=== PATIENT | female | born 1945 | race Caucasian/White ===

== ENCOUNTER 2017-01-13 21:31 | Inpatient (IN) ==
--- NOTE | 2017-01-13 21:50 | Emergency Department Note ---
IMahesh Kasabria, am scribing for, and in the presence of, Elida Ramey DO 21 :48. ITanvir Debra, DO, personally performed the services described in this documentation, ascribed by Farheen Aragon in my presence, and it is both accurate and complete . Arrival - Arrival Limitations: No Limitations Source: EMS Time Seen by Provider: 01/13/17 21:35 - History of Present Illness HPI Narrative: This is a 71 y/o white female presenting to the ED via EMS with c/o being unresponsive since 1400 today. Family found the pt this way tonight and called EMS. 2 Versed were given en route with no response. She is responsive to painful stimuli when dentures were removed. Consistency: constant Severity: moderate Allergies/Adverse Reactions: Allergies Allergy/AdvReac Type Severity Reaction Status Date / Time No Known Allergies Allergy Verified 09/25/16 23:35 Home Medications: Home Medications Medication Instructions Recorded Confirmed Type Baclofen 5 mg PO BID 03/19/15 10/12/16 History Escitalopram [Lexapro] 10 mg PO BEDTIME 03/19/15 10/12/16 History Pantoprazole Tab [Protonix Tab] 40 mg PO BID 03/19/15 10/12/16 History Potassium Chloride [K-Tab ER] 20 meq PO BID 01/13/16 10/12/16 History Promethazine HCl 25 mg PO Q6HR PRN 01/13/16 10/12/16 History traMADol TAB [Ultram] 50 - 100 mg PO Q6H PRN 01/13/16 10/12/16 History Acetaminophen Tab [Tylenol Tab] 650 mg PO Q6H PRN #0 tablet 07/14/16 10/12/16 Rx Hydrocortisone Tab [Cortef Tab] 20 mg PO BEDTIME #120 tablet 07/14/16 10/12/16 Rx Hydrocortisone Tab [Cortef Tab] 20 mg PO DAILY W/BREAKFAST tablet 07/14/1605/20 Rx Fludrocortisone [Florinef] 0.2 mg PO BID #60 tablet 09/08/16 10/12/16 Rx Ondansetron Tab [Zofran Tab] 4 mg PO Q6HR PRN 09/26/16 10/12/16 History Review of System - Review of System ROS unobtainable: due to mental status 12 point system: reviewed and no additional remarkable complaints except as stated - Review of System Constitutional: Absent: fever Gastrointestinal: Present: other (colostomy bag ). Absent: nausea, vomiting, diarrhea Skin: Absent: rash Neurological: Present: abnormal gait Allergic/Immunologic: Absent: facial swelling Exam Vital Signs: Vital Signs Temperature 97.4 F L 01/13/17 21:31 Pulse Rate 57 L 01/13/17 21:31 Respiratory Rate 14 01/13/17 21:31 Blood Pressure 84/49 01/13/17 21:31 O2 Sat by Pulse Oximetry 98 01/13/17 21:31 - General Exam limited due to: other (altered mental status ) General appearance: other (responsive to painfuls stimuli when dentures were removed ) - Head Head exam: Present: atraumatic, normocephalic, normal inspection - Eye Eye exam: Present: normal appearance, PERRL, EOMI - ENT ENT exam: Present: normal exam, normal oropharynx, mucous membranes moist, TM's normal bilaterally, normal external ear exam - Neck Neck exam: Present: normal inspection, full ROM, trachea midline. Absent: tenderness - Chest Chest inspection: Present: normal inspection, symmetric chest wall rise. Absent : tenderness - Respiratory Respiratory exam: Present: normal lung sounds bilaterally - Cardiovascular Cardiovascular exam: Present: regular rate, normal rhythm, normal heart sounds - Abdominal Exam Abdominal exam: Present: soft, normal bowel sounds, other (colostomy bag present ). Absent: distention, tenderness - Extremities Exam Extremities exam: Present: normal inspection, full ROM, normal capillary refill. Absent: tenderness, pedal edema, calf tenderness - Back Exam Back exam: Present: normal inspection, full ROM. Absent: tenderness - Neurological Exam Neurological exam: Present: alert, oriented X3, CN II-XII intact, normal gait, reflexes normal - Psychiatric Psychiatric exam: Present: normal affect, normal mood - Skin Skin exam: Present: warm, dry, intact, normal color. Absent: rash, diaphoresis Course Course Narrative: spoke with Dr Gutierrez who will admit patient Results - Labs CBC & BMP: 01/13/17 21:51 01/13/17 21:51 Lab Results: I have reviewed the patients labs - EKG EKG results: interpreted by DIVINA, WNL - Diagnostic Findings Procedure: Chest x-ray: image reviewed by me (no acute path), CT: report reviewed by me (neg) Disposition Clinical Impression: Addisonian crisis, Altered mental status Case discussed with: patient's family Disposition: Still a Patient Condition: Guarded Time of Disposition: 23:50
[2017-01-13] MEDS ORDERED: SODIUM CHLORIDE 0.9% 1,000 ML IV STA ×2 (21:59→23:05)
[2017-01-13 22:06] LABS: Basophils % 0.3 % (0.0-0.8); Eosinophils % 0.4 % (0.00-10.9); Hematocrit 31.3 VOL% (35.7-47.0); Hemoglobin 9.6 GM/DL (12.0-16.0); Immature Granulocytes % 5.6 %; Immature Granulocytes Absolute 0.38 #; Lymphocytes # 0.4 10*3/uL (1.4-4.0); Mean Corpuscular HGB Conc 30.7 GM/DL (32-36); Mean Corpuscular Hemoglobin 24 PG (27-34); Mean Corpuscular Volume 78.1 FL (87-102); Mean Platelet Volume 10.1 FL (9.6-12.0); Monocytes # 0.4 10*3/uL (0.11-0.8); Monocytes % 6.3 % (1.7-12.7); Neutrophils # 5.6 10*3/uL (1.4-7.4); Neutrophils % 81.4 % (38.7-73.9); Platelet Count 216 T/CUMM (130-400); Red Blood Count 4.01 MC/CUMM (3.8-5.5); Red Cell Distribution Width 16.2 % (9.3-17.3); White Blood Count 6.8 T/CUMM (4-12)
[2017-01-13 22:16] LABS: PT Patient Result 10.3 SECS
[2017-01-13 22:27] LABS: Alanine Aminotransferase 21 U/L (13-56); Albumin 2.5 G/DL (3.4-5.0); Alkaline Phosphatase 60 U/L (45-117); Aspartate Amino Transferase 22 U/L (0-37); Blood Urea Nitrogen 23 MG/DL (7-18); Calcium 8.2 MG/DL (8.5-10.1); Glucose 102 MG/DL (74-106); Osmolality,Calculated 284.3 MOS/KG (273-304); Potassium 4.1 MMOL/L (3.5-5.1); Sodium 141 MMOL/L (136-145); Total Protein 5.3 G/DL (6.4-8.3); Troponin I Only < 0.015 NG/ML (0.00-0.045)
[2017-01-13 22:50] LABS: Apearance,Urine Slightly Hazy (Clear); Bacteria,Urine Many /HPF (Few); Bilirubin,Urine Negative (Negative); Blood, Urine Negative (Negative); Glucose,Urine (UA) Negative (Negative); Ketones,Urine Negative (Negative); Mucus,Urine Occasional /LPF (Occasional); Nitrite,Urine Negative (Negative); Protein,Urine Negative; RBC,Urine 1 /HPF (0-4); Urine Color Yellow (Yellow); Urine Specific Gravity 1.009 (1.001-1.035); Urine Urobilinogen < 2.0 EU/DL (0.2-1.0); WBC,Urine 1 /HPF (0-6)
[2017-01-13] MEDS ORDERED: DOBUTamine 250 ML IV ONE (23:02)
[2017-01-13 23:04] LABS: Barbiturates Screen,Urine Negative (Negative); Benzodiazepines Screen,Urine Positive (Negative); Cannabinoid Screen,Urine Negative (Negative); Opiate Screen,Urine Positive (Negative); Phencyclidine Screen,Urine Negative (Negative)
[2017-01-13] MEDS ORDERED: NALOXONE 0.4 MG/ML VIAL IV STA ×2 (23:26→23:37)
[2017-01-13] MEDS ORDERED: NALOXONE 0.4 MG/ML VIAL ONE (23:29)
[2017-01-13] MEDS ORDERED: FLUMAZENIL 0.5 MG/5 ML VIAL IV ONE (23:32)
[2017-01-13] MEDS ORDERED: DEXAMETHASONE 4 MG/1 ML VIAL ONE (23:37)
[2017-01-13] MEDS ORDERED: FLUMAZENIL 1 MG/10 ML VIAL IV ONE (23:37)
[2017-01-13] MEDS ORDERED: DEXAMETHASONE 4 MG/1 ML VIAL IV STA (23:38)
[2017-01-13] MEDS: DOBUTamine 500 MG/250 ML PREMIX IV SCH (23:43)
[2017-01-13] MEDS ORDERED: ONDANSETRON 4 MG/2 ML VIAL IV PRN (23:50)
[2017-01-13] MEDS ORDERED: ACETAMINOPHEN 325 MG TABLET PO PRN (23:50)
[2017-01-14] MEDS: SODIUM CHLORIDE 0.9% 1,000 ML IV SCH ×3 (01:35→19:35)
[2017-01-14 01:36] LABS: Band Neutrophils 4 % (0-10); Lymphocytes 4 % (20-55); Metamyelocytes 1 %; Myelocytes 3 %; Segmented Neutrophils 84 % (50-85); Total Cells Counted 100
[2017-01-14 01:37] LABS: Anisocytosis 1+; Ovalocytes Few; Platelet Estimate Normal
--- NOTE | 2017-01-14 01:58 | Internal Med History&Physical ---
Assessment and Plan (1) Addisonian crisis Status: Acute Current Visit: Yes (2) Altered mental status Status: Acute Current Visit: Yes Qualifiers: Altered mental status type: somnolence Qualified Code(s): R40.0 - Somnolence (3) Anemia of chronic disease Status: Chronic Current Visit: Yes (4) Complication of Ileal conduit Status: Chronic Current Visit: Yes (5) Failure to thrive in adult Status: Chronic Current Visit: Yes (6) Hypotension Status: Chronic Current Visit: Yes Qualifiers: Hypotension type: orthostatic hypotension Qualified Code(s): I95.1 - Orthostatic hypotension (7) Personal history of colon cancer Status: Chronic Current Visit: No (8) Recurrent UTI Status: Chronic Current Visit: Yes History of Present Illness Chief complaint: unarousable at home History of present illness: Ms. Blake is a 71 year old female with history of [place] Disease with multiple recurrences, hypotension, stroke, [place], CHF with multiple recurrences of exacerbation, pneumonia with multiple recurrences, recurrent UTI, anemia with multiple blood transfusions, colorectal cancer with resection of colon and rectum, ileostomy, who presented to ER obtunded. Her reports that she has been arousable in the past, but not this time. He reports that ileostomy has been herniated as of October. Also, she has had recent UTI. Home Medications Medication Instructions Recorded Confirmed Type Baclofen 5 mg PO BID 03/19/15 10/12/16 History Escitalopram [Lexapro] 10 mg PO BEDTIME 03/19/15 10/12/16 History Pantoprazole Tab [Protonix Tab] 40 mg PO BID 03/19/15 10/12/16 History Potassium Chloride [K-Tab ER] 20 meq PO BID 01/13/16 10/12/16 History Promethazine HCl 25 mg PO Q6HR PRN 01/13/16 10/12/16 History traMADol TAB [Ultram] 50 - 100 mg PO Q6H PRN 01/13/16 10/12/16 History Acetaminophen Tab [Tylenol Tab] 650 mg PO Q6H PRN #0 tablet 07/14/16 10/12/16 Rx Hydrocortisone Tab [Cortef Tab] 20 mg PO BEDTIME #120 tablet 07/14/16 10/12/16 Rx Hydrocortisone Tab [Cortef Tab] 20 mg PO DAILY W/BREAKFAST tablet 07/14/1605/20 Rx Fludrocortisone [Florinef] 0.2 mg PO BID #60 tablet 09/08/16 10/12/16 Rx Ondansetron Tab [Zofran Tab] 4 mg PO Q6HR PRN 09/26/16 10/12/16 History Allergies Allergy/AdvReac Type Severity Reaction Status Date / Time No Known Allergies Allergy Verified 09/25/16 23:35 Medical,Surgical,& Family Hx - Medical History Cardio: History of: Cardiac Dysrhythmia, CHF, [place] Psychological: History of: Anxiety Disorders, Depression Neurology: History of: Cerebrovascular Accident (2016), Dementia HEENT: History of: Ear Problem (HARD OF HEARING), Dental Problems (DENTURES ( FULL) UPPER AND LOWER) No history of: Eye Problem Endocrine: History of: Adrenal Disease (adrenal insufficiency; addisons disease) , Endocrine Problems (DAVID'S DISEASE, ADRENAL INSUFFCIENCY) Respiratory: History of: Bronchitis, Intubation, Pulmonary Embolism, Pneumonia No history of: Obstructive Sleep Apnea, Pulmonary Hypertension, Lung Cancer, Respiratory Problems Renal: History of: Renal Failure, Renal Problems (renal Calculi) Genitourinary: History of: Bladder Problem, Kidney Stones, Recurring Urinary Tract Infections No history of: Genitourinary Cancer Gastrointestinal: History of: Diverticulitis/ Diverticulosis, GERD, Gastrointestinal Bleed, Liver Problems (SPOT ON LIVER ONCE), Polyps, Gastrointestinal Cancer (colorectal cancer), GI Problems (PATIENT DOESN'T HAVE COLON OR RECTUM) No history of: Bowel Obstruction, Esophageal Varices, Hemorrhoids, Hematochezia, Hepatitis, Pancreatitis, Ulcerative Colitis Musculoskeletal: History of: Back/Neck Problems, Osteoporosis No history of: Amputation Hematology: History of: Anemia, Blood Transfusion Reaction (STAPH INFECTION FROM BLOOD INFUSION) Reproductive: History of: Abnormal Pap Smear, Ovarian Cysts Other: History of: Cancer (colo-rectal) - Surgical History Cardiac Surgeries: Patient Denies: Femoral-Popliteal Bypass Graft, Cardiac Catheterization, Cardiac Surgery, Carotid Endarterectomy, Internal Defibrillator, Vascular Access Devices Thoracic Surgeries: Patient denies;: Kidney (Renal Surgery), Lithotripsy, Nephrectomy, Organ Transplant, Lobectomy Neurologic Surgeries: Patient denies: Neurologic Surgery HEENT Surgeries: Surgical HX of: Tonsilectomy & Adenoidectomy Patient denies: Carotid Endarterectomy, Eye Surgery, Thyroid Surgery Abdominal Surgeries: Surgical HX of: Abdominal Surgery, Appendectomy, Cholecystectomy, Colonoscopy, EGD, Hernia Repair Patient denies: Gastric Bypass Surgery, Splenectomy Reproductive Surgeries: Surgical HX of;: Gynecologic Surgery, Hysterectomy Patient denies;: Cystoscopy, Genitourinary Surgery Orthopedic Surgeries: Surgical HX of;: Orthopedic Surgery (BROKEN LEFT WRIST), Total Hip Replacement (RIGHT HIP) Patient denies;: Implanted Devices, Spinal Surgery, Total Knee Replacement - Family History Family History: Reports;: Family Cancer (Mother, Aunt), Family Diabetes ( Daughter, Grandmother), Family Heart Disease (Grandfather), Family Stroke ( Mother, Grandmother, Daughter) Denies;: Family Hypertension - Social History Smoking Status: Never smoker Type of Drug Use: None Marital Status: Lives With:: Spouse Functional capacity: independent ambulation ROS unobtainable: due to encephalopathy, other ( provided history; old charts) - Constitutional Constitutional: Present: daytime sleepiness, fatigue - Respiratory Respiratory: Present: dyspnea - Gastrointestinal Gastrointestinal: Present: nausea - Genitourinary Genitourinary: Present: dysuria (recent UTI) Exam - Constitutional Vitals: Period Temp Pulse Resp BP Sys/Funk Pulse Ox Last 24 Hr 85 16 95/50 100 General appearance: no acute distress (unarousable) - Head Head exam: Present: normocephalic - Respiratory Respiratory exam: Present: clear to auscultation bilaterally. Absent: rhonchi - Cardiovascular Cardiovascular exam: Present: regular rate and rhythm - GI/Abdominal GI/Abdominal exam: Present: normal bowel sounds, soft - Extremities Exam Extremities exam: Absent: edema - Neurological Exam Neurological exam: Present: other (unarousable) - Skin Skin exam: Present: warm, dry Results - Labs CBC & BMP: 01/13/17 21:51 01/13/17 21:51 - Diagnostic Findings Procedure: Chest x-ray: image reviewed by me
[2017-01-14] MEDS ORDERED: POTASSIUM CHLORIDE RIDER 20 MEQ in PREMIX 1 EACH IV PRN (02:02)
[2017-01-14 02:56] LABS: ABG Base Excess -6.7 MMOL/L (-2.5-2.5); ABG HCO3 18.9 MMOL/L (20-26); ABG Oxygen Saturation 97.3 % (95-100); ABG PCO2 35.4 MM HG (35-48); ABG PH 7.328 (7.35-7.45); ABG TCO2 17.1 MMOL/L (23-27); Allen Test Positive
[2017-01-14 04:59] LABS: Basophils % 0.1 % (0.0-0.8); Hematocrit 31.6 VOL% (35.7-47.0); Hemoglobin 9.4 GM/DL (12.0-16.0); Immature Granulocytes % 5.4 %; Immature Granulocytes Absolute 0.39 #; Lymphocytes # 0.2 10*3/uL (1.4-4.0); Lymphocytes % 2.6 % (21.3-54.2); Mean Corpuscular HGB Conc 29.7 GM/DL (32-36); Mean Corpuscular Hemoglobin 23 PG (27-34); Mean Corpuscular Volume 78.8 FL (87-102); Mean Platelet Volume 9.9 FL (9.6-12.0); Monocytes # 0.2 10*3/uL (0.11-0.8); Neutrophils # 6.4 10*3/uL (1.4-7.4); Neutrophils % 88.9 % (38.7-73.9); Platelet Count 197 T/CUMM (130-400); Red Blood Count 4.01 MC/CUMM (3.8-5.5); Red Cell Distribution Width 16.2 % (9.3-17.3); White Blood Count 7.2 T/CUMM (4-12)
[2017-01-14] MEDS: cefTRIAXone 1,000 MG in SODIUM CHLORIDE 0.9% 100 ML IV SCH (05:03)
[2017-01-14 05:16] LABS: Albumin 2.4 G/DL (3.4-5.0); Bilirubin,Total 0.4 MG/DL (0.2-1.0); Calcium 8.2 MG/DL (8.5-10.1); Magnesium 1.9 MG/DL (1.8-2.4); Potassium 3.9 MMOL/L (3.5-5.1); Total Protein 5.1 G/DL (6.4-8.3)
[2017-01-14 05:59] LABS: Apearance,Urine CLOUDY (Clear); Bacteria,Urine Occasional /HPF (Few); Bilirubin,Urine Negative (Negative); Blood, Urine Negative (Negative); Glucose,Urine (UA) Negative (Negative); Ketones,Urine 5 mg/dL (Negative); Mucus,Urine Occasional /LPF (Occasional); Nitrite,Urine Negative (Negative); Protein,Urine 30 MG/DL; RBC,Urine 7 /HPF (0-4); Squamous Epithelial Cell,Urine Occasional /HPF (0-10); Urine Color Yellow (Yellow); Urine Specific Gravity 1.014 (1.001-1.035); Urine Urobilinogen < 2.0 EU/DL (0.2-1.0); WBC,Urine 49 /HPF (0-6)
[2017-01-14] MEDS: POTASSIUM CHLORIDE RIDER 10 MEQ in PREMIX 1 EACH IV PRN ×2 (06:15→07:10)
[2017-01-14 07:41] LABS: Band Neutrophils 5 % (0-10); Hypochromasia Slight; Microcytosis 1+; Myelocytes 2 %; Platelet Estimate Adequate; Polychromasia Slight; Segmented Neutrophils 89 % (50-85); Total Cells Counted 100
--- NOTE | 2017-01-14 08:11 | EKG Report ---
Stationary ECG Study [facility] ER Test Date: 01/13/2017 9:38 PM Pat Name: ROBERT GALEANA Department: Room: 122 Gender: F Aquatics Coordinator: : 1945 Requested by: Elida Ramey Order Number: [id number] Reading MD: PRADIP SMITH Intervals [place] Rate: 60 P: 75 AR: 161 QRS: 85 QRSD: 86 T: 76 QT: 392 QTc: 393 Interpretive Statements SINUS RHYTHM Electronically Signed On 01-15-17 16:43:09 CDT by PRADIP SMITH [email or web address]
--- NOTE | 2017-01-14 08:19 | XRay Report ---
XR chest 1V portable Indication: Abnormal breath sounds Comparison: 13 October 2016 Findings: The heart and mediastinum are stable in size and configuration. Right subclavian Port-A-Cath is unchanged in position. The pulmonary vascularity is normal in caliber. Lung volumes are increased with prominent bronchial markings. Faint areas a right lower lung density are present. No other lung infiltrates, effusions, pneumothorax or other abnormality is demonstrated. Impression: Faint right lower lung densities, could indicate pneumonia. PROCEDURE INTERPRETED AT [facility] DEPARTMENT OF RADIOLOGY Final Report Signed by: Dr. Darrion Flores
--- NOTE | 2017-01-14 08:21 | CT Report ---
CT brain Indication: Altered mental status Comparison: 12 October 2016 Technique: Axial CT imaging of the brain is performed without contrast with 3 mm increments. Findings: No evidence of hemorrhage, mass mass effect midline shift or acute infarct seen. There is moderate diffuse cerebral atrophy. There are areas of decreased density seen within the white matter. Otherwise the brain parenchyma attenuation and differentiation appears within normal limits. The ventricles and cisterns are normal in caliber. No cranial or skull base abnormality is identified. Impression: No evidence of acute process or interval change. This CT exam was performed using one or more the following dose reduction techniques: Automated exposure control, adjustment of the MA and/or KV according to patient size, or use of iterative reconstruction technique. PROCEDURE INTERPRETED AT [facility] DEPARTMENT OF RADIOLOGY Final Report Signed by: Dr. Darrion Flores
[2017-01-14] MEDS: DOCUSATE SODIUM 100 MG CAPSULE PO SCH ×2 (09:22→21:32)
[2017-01-14] MEDS: PANTOPRAZOLE 40 MG TABLET PO SCH (09:22)
[2017-01-14] MEDS: DEXAMETHASONE 4 MG/1 ML VIAL IV SCH (12:44)
--- NOTE | 2017-01-14 15:01 | Internal Med Progress Note ---
Assessment and Plan (1) Altered mental status Status: Resolved Current Visit: Yes Qualifiers: Altered mental status type: somnolence Qualified Code(s): R40.0 - Somnolence (2) Anemia of chronic disease Status: Chronic Current Visit: Yes (3) Complication of Ileal conduit Status: Chronic Current Visit: Yes (4) Failure to thrive in adult Status: Chronic Current Visit: Yes (5) Hypotension Status: Chronic Current Visit: Yes Qualifiers: Hypotension type: orthostatic hypotension Qualified Code(s): I95.1 - Orthostatic hypotension (6) Personal history of colon cancer Status: Chronic Current Visit: No (7) Recurrent UTI Status: Chronic Current Visit: Yes (8) Addisons disease Status: Chronic Current Visit: Yes (9) History of pneumonia Status: Chronic Current Visit: Yes Internal Medicine - PN: Subj Interval history: Ms. Blake is a 71 year old female with history of [place] Disease with multiple recurrences, hypotension, stroke, [place], CHF with multiple recurrences of exacerbation, pneumonia with multiple recurrences, recurrent UTI, anemia with multiple blood transfusions, colorectal cancer with resection of colon and rectum, ileostomy, who presented to ER obtunded. Her reports that she has been arousable in the past, but not this time. He reports that ileostomy has been herniated as of October. Also, she has had recent UTI. She appears to be better today, Sunday, and is awake and alert. Suspicion for pneumonia is now low. Chest xray during the night, upon admission, was concerning for possible pneumonia. She has antibiotic coverage. She has ileostomy with issues. Dr. Terrell had seen her last hospitalizaton. Now , there is concern of technique and proper tubing for draining ileal pouch. The patient has had significant weight loss over last several months. Urine was positive for opiates and benzos. However, these meds are not on her med list. Asked Nurse to find out from her outpatient pharmacy. Exam (Progress Note) - Constitutional Vitals: Period Temp Pulse Resp BP Sys/Funk Pulse Ox Last 24 Hr 97.2 F 64-98 15-34 86-134/41-98 95-100 Exam: General appearance: no acute distress; alert - Respiratory Respiratory exam: Present: clear to auscultation bilaterally. - Cardiovascular Cardiovascular exam: Present: regular rate and rhythm - GI/Abdominal GI/Abdominal exam: Present: normal bowel sounds, soft - Extremities Exam Extremities exam: Absent: edema - Neurological Exam Neurological exam: Present: other - Skin Skin exam: Present: warm, dry Results - Labs CBC & BMP: 01/14/17 04:27 01/14/17 04:27
--- NOTE | 2017-01-14 16:28 | ECHO Report ---
Gina Blake Exam Date: 01/14/2017 08:12 Referring Physician: Technologist: Madeleine Alvarado Age: 71 Ht (in): 65 Wt (lb): 127 Gender: F Exam Location: [facility] Echo Indications: hypotension, dehydration, HX. heart disease, scarlet Disease, anemia, UTI, S/P ileal conduct BP: 98 / 48 HR: 78 Rhythm: Sinus Technical Quality: Fair IMPRESSIONS 1. Limited quality study visualization. 2. Left ventricle is normal size and systolic function with ejection fraction 55 6%. It worse mild concentric left ventricular hypertrophy with grade 1/mild diastolic dysfunction. 3. Other cardiac chambers are normal size. 4. There is no significant cardiac valve abnormality. 5. No evidence of elevated right-sided pressures. MEASUREMENTS (Male / Female) Normal Values 2D ECHO LV Diastolic Diameter PLAX 3.4 cm 4.2 - 5.9 / 3.9 - 5.3 cm LV Systolic Diameter PLAX 2.4 cm LV Fractional Shortening PLAX 27.4 % IVS Diastolic Thickness 1.2 cm 0.6 - 1.0 / 0.6 - 0.9 cm LVPW Diastolic Thickness 1.1 cm 0.6 - 1.0 / 0.6 - 0.9 cm RV Internal Dim ED PLAX 2.2 cm Aortic Root Diameter 2.5 cm LA Systolic Diameter LX 3.0 cm 3.0 - 4.0 / 2.7 - 3.8 cm DOPPLER TR Peak Velocity 219.0 cm/s TR Peak Gradient 19.2 mmHg FINDINGS Left Ventricle Left ventricle is normal size and systolic function with an ejection fraction of 55-60%. No segmental motion abnormalities. It worse and may be some mild left ventricular hypertrophy. Mild/grade 1 diastolic dysfunction. Right Ventricle Normal right ventricular size and systolic function. Right Atrium Normal right atrial size. Left Atrium Normal left atrial size. Mitral Valve Mitral valve appears to be grossly normal with good motion and delicate. Trace insufficiency. Aortic Valve Aortic valve is not well visualized but no visible gross abnormalities. No Doppler abnormalities. Tricuspid Valve Morphologically normal tricuspid valve. Trace to mild tricuspid valve regurgitation. Tricuspid regurgitation velocities suggest a PAP of 24- 29 mmHg. Pulmonic Valve Morphologically normal pulmonic valve. Pericardium No pericardial effusion. Aorta Normal size aortic root and proximal ascending aorta. Collin Rodriguez MD (Electronically Signed) Final Date: 14 Jan 2017 16:27
[2017-01-14] MEDS ORDERED: CYANOCOBALAMIN 1000 MCG/1 ML VIAL IM ONE (16:42)
--- NOTE | 2017-01-14 18:11 | Pulmonology Consult Note ---
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 Concerns include Concho's crisis, infection, and medication overdose among other possibilities. Evaluation thus far has shown a urine sample positive for benzos and opiates, which could be the source of her altered mental status. Additionally evaluation has shown a urinalysis concerning for a UTI. Chest x-ray performed today was interpreted as possibly concerning for a right lower lobe infiltrate. After review of the imaging, I do not feel this is likely to represent a pneumonia given her normal white count , absence of fever, lack of cough/sputum production noted by nursing and these increased lung markings were noted on prior chest x-ray. Given this, I do not feel a pneumonia is the source of this patient's altered mental status. Recommend continued evaluation per IM and consider antibiotic coverage while pursuing a source for altered mental status given her underlying Concho's disease. Current Visit: Yes Qualifiers: Altered mental status type: somnolence Qualified Code(s): R40.0 - Somnolence History of Present Illness Chief complaint: Altered mental status History of present illness: Ms. Blake is a 71 year old female who is reportedly brought into the emergency room for evaluation of altered mental status by her . was not available at the time of my interview and patient was unable to provide a reliable history. HPI is obtained by chart review. 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 Reportedly patient's found her minimally responsive at home and so brought her in to the emergency room. Pulmonary is consulted for concern of pneumonia on chest x-ray. Home Medications Medication Instructions Recorded Confirmed Type Baclofen 5 mg PO BID 03/19/15 10/12/16 History Escitalopram [Lexapro] 10 mg PO BEDTIME 03/19/15 10/12/16 History Pantoprazole Tab [Protonix Tab] 40 mg PO BID 03/19/15 10/12/16 History Potassium Chloride [K-Tab ER] 20 meq PO BID 01/13/16 10/12/16 History Promethazine HCl 25 mg PO Q6HR PRN 01/13/16 10/12/16 History traMADol TAB [Ultram] 100 mg PO Q6H PRN 01/13/16 10/12/16 History Acetaminophen Tab [Tylenol Tab] 650 mg PO Q6H PRN #0 tablet 07/14/16 10/12/16 Rx Hydrocortisone Tab [Cortef Tab] 20 mg PO BEDTIME #120 tablet 07/14/16 10/12/16 Rx Hydrocortisone Tab [Cortef Tab] 20 mg PO DAILY W/BREAKFAST tablet 07/14/1605/20 Rx Fludrocortisone [Florinef] 0.2 mg PO BID #60 tablet 09/08/16 10/12/16 Rx Ondansetron Tab [Zofran Tab] 4 mg PO Q6HR PRN 09/26/16 10/12/16 History Donepezil [Aricept] 5 mg PO BEDTIME 01/14/17 01/14/17 History prednisoLONE AC 1% OPH SUSP [Pred 1 drop RIGHT EYE QID 01/14/17 01/14/17 History Forte] Allergies Allergy/AdvReac Type Severity Reaction Status Date / Time No Known Allergies Allergy Verified 09/25/16 23:35 ROS unobtainable: due to mental status Exam (Pulmonay) H&P - Constitutional Vitals: Period Temp Pulse Resp BP Sys/Funk Pulse Ox Last 24 Hr 97.2 F 64-98 15-34 86-134/41-98 95-100 General appearance: under weight - Head Head exam: Present: normal inspection - Eye Eye exam: Present: EOMI Pupils: Present: CATY - Neck Neck exam: Present: normal inspection - Respiratory Respiratory exam: Present: clear to auscultation bilaterally. Absent: rales, rhonchi, wheezes - Cardiovascular Cardiovascular exam: Present: regular rate and rhythm - GI/Abdominal GI/Abdominal exam: Present: normal bowel sounds, soft. Absent: tenderness - Neurological Exam Neurological exam: Present: altered (Arouses easily but then quickly falls back asleep) - Skin Skin exam: Present: warm, dry Medical,Surgical,& Family Hx - Medical History Cardio: History of: Cardiac Dysrhythmia, CHF, [place] Psychological: History of: Anxiety Disorders, Depression Neurology: History of: Cerebrovascular Accident (2016), Dementia HEENT: History of: Ear Problem (HARD OF HEARING), Dental Problems (DENTURES ( FULL) UPPER AND LOWER) No history of: Eye Problem Endocrine: History of: Adrenal Disease (adrenal insufficiency; addisons disease) , Endocrine Problems (JEREMY'S DISEASE, ADRENAL INSUFFCIENCY) Respiratory: History of: Bronchitis, Intubation, Pulmonary Embolism, Pneumonia No history of: Obstructive Sleep Apnea, Pulmonary Hypertension, Lung Cancer, Respiratory Problems Renal: History of: Renal Failure, Renal Problems (renal Calculi) Genitourinary: History of: Bladder Problem, Kidney Stones, Recurring Urinary Tract Infections No history of: Genitourinary Cancer Gastrointestinal: History of: Diverticulitis/ Diverticulosis, GERD, Gastrointestinal Bleed, Liver Problems (SPOT ON LIVER ONCE), Polyps, Gastrointestinal Cancer (colorectal cancer), GI Problems (PATIENT DOESN'T HAVE COLON OR RECTUM) No history of: Bowel Obstruction, Esophageal Varices, Hemorrhoids, Hematochezia, Hepatitis, Pancreatitis, Ulcerative Colitis Musculoskeletal: History of: Back/Neck Problems, Osteoporosis No history of: Amputation Hematology: History of: Anemia, Blood Transfusion Reaction (STAPH INFECTION FROM BLOOD INFUSION) Reproductive: History of: Abnormal Pap Smear, Ovarian Cysts Other: History of: Cancer (colo-rectal) - Surgical History Cardiac Surgeries: Patient Denies: Femoral-Popliteal Bypass Graft, Cardiac Catheterization, Cardiac Surgery, Carotid Endarterectomy, Internal Defibrillator, Vascular Access Devices Thoracic Surgeries: Patient denies;: Kidney (Renal Surgery), Lithotripsy, Nephrectomy, Organ Transplant, Lobectomy Neurologic Surgeries: Patient denies: Neurologic Surgery HEENT Surgeries: Surgical HX of: Tonsilectomy & Adenoidectomy Patient denies: Carotid Endarterectomy, Eye Surgery, Thyroid Surgery Abdominal Surgeries: Surgical HX of: Abdominal Surgery, Appendectomy, Cholecystectomy, Colonoscopy, EGD, Hernia Repair Patient denies: Gastric Bypass Surgery, Splenectomy Reproductive Surgeries: Surgical HX of;: Gynecologic Surgery, Hysterectomy Patient denies;: Cystoscopy, Genitourinary Surgery Orthopedic Surgeries: Surgical HX of;: Orthopedic Surgery (BROKEN LEFT WRIST), Total Hip Replacement (RIGHT HIP) Patient denies;: Implanted Devices, Spinal Surgery, Total Knee Replacement - Family History Family History: Reports;: Family Cancer (Mother, Aunt), Family Diabetes ( Daughter, Grandmother), Family Heart Disease (Grandfather), Family Stroke ( Mother, Grandmother, Daughter) Denies;: Family Hypertension - Social History Smoking Status: Never smoker Frequency of Alcohol Use: Unknown Type of Drug Use: None Results - Labs CBC & BMP: 05/14/17 04:27 01/14/17 04:27 - Diagnostic Findings Procedure: Chest x-ray: image reviewed by me, report reviewed by me (No acute abnormalities. Faint right lower lobe increased lung markings)
[2017-01-15] MEDS: DEXAMETHASONE 4 MG/1 ML VIAL IV SCH (00:15)
[2017-01-15 02:44] LABS: ABG Base Excess -2.8 MMOL/L (-2.5-2.5); ABG HCO3 20.8 MMOL/L (20-26); ABG Oxygen Saturation 94.8 % (95-100); ABG PCO2 31.7 MM HG (35-48); ABG PH 7.435 (7.35-7.45); ABG PO2 83.5 MM HG (80-95); ABG TCO2 21.8 MMOL/L (23-27); Allen Test Positive; Pt O2 Delivery Device Room Air
[2017-01-15] MEDS: SODIUM CHLORIDE 0.9% 1,000 ML IV SCH ×4 (03:35→21:23)
[2017-01-15] MEDS: cefTRIAXone 1,000 MG in SODIUM CHLORIDE 0.9% 100 ML IV SCH (03:48)
[2017-01-15 05:24] LABS: Calcium 7.8 MG/DL (8.5-10.1); Magnesium 2.1 MG/DL (1.8-2.4); Osmolality,Calculated 283.1 MOS/KG (273-304); Potassium 3.7 MMOL/L (3.5-5.1)
--- NOTE | 2017-01-15 06:34 | EKG Report ---
Stationary ECG Study [facility] Test Date: 01/14/2017 7:51:50 PM Pat Name: ROBERT GALEANA Department: Room: 122 Gender: F [employer]: [place] : 1945 Requested by: Doug Butler Order Number: [id number] Reading MD: PRADIP SMITH Intervals Evans Rate: 102 P: 69 IA: 145 QRS: 85 QRSD: 78 T: 58 QT: 331 QTc: 390 Interpretive Statements SINUS TACHYCARDIA Electronically Signed On 01-15-17 16:52:55 CDT by PRADIP SMITH [email or web address]
[2017-01-15] MEDS ORDERED: PROMETHAZINE 25 MG TABLET PO PRN (08:04)
--- NOTE | 2017-01-15 08:10 | Family Practice Progress Note ---
Family Practice - PN: Subj Interval history: Patient is doing a bit better this morning was still quite confused. Patient still did have positive drug screen for benzos and opiates and she does not have prescription for these medications that I am aware of. She is off Dobutrex at present and her blood pressure is improved. I am going to restart her Florinef and switch her from Decadron to Solu-Cortef. Blood cultures are negative and her urine cultures negative at 24 hours. She is presently receiving IV Rocephin. If her vital signs remained stable she can come out of the unit later today. Exam (Progress Note) - Constitutional Vitals: Period Temp Pulse Resp BP Sys/Funk Pulse Ox Last 24 Hr 97.8 F-98.2 F 63-113 14-29 61-134/40-98 95-100 Exam: Objectively well-developed white female no acute distress. She is awake and alert and insistent on discharge. I told her that is not an option at present. She denies any pain or discomfort. Cardiovascular: Heart rates regular without murmurs or gallops. Respiratory: Lungs clear to auscultation bilaterally. Abdomen: Abdomen soft and nontender to palpation. Results - Labs CBC & BMP: 01/14/17 04:27 01/15/17 04:01 Lab Results: I have reviewed the past 24 hour labs Assessment and Plan (1) Addisons disease Status: Chronic Assessment and plan: 01/15/2017: Patient is clinically improved. Will restart Florinef And switched to Solu-Cortef. Current Visit: Yes (2) Dehydration Status: Resolved Assessment and plan: 01/15/2017: This has resolved. Current Visit: No
[2017-01-15] MEDS: DOCUSATE SODIUM 100 MG CAPSULE PO SCH ×2 (08:34→20:01)
[2017-01-15] MEDS: PANTOPRAZOLE 40 MG TABLET PO SCH (08:35)
[2017-01-15] MEDS: BACLOFEN 10 MG TABLET PO SCH ×2 (08:36→20:17)
[2017-01-15] MEDS: POTASSIUM CHLORIDE 20 MEQ TABLET PO SCH ×2 (08:36→20:16)
[2017-01-15] MEDS: FLUDROCORTISONE 0.1 MG TABLET PO SCH ×2 (08:36→20:18)
[2017-01-15] MEDS: HYDROCORTISONE 100 MG VIAL IV SCH ×2 (08:37→20:14)
--- NOTE | 2017-01-15 08:47 | Pulmonology Progress Note ---
Pulmonary - PN: Subj Interval history: The patient is a 71-year-old white lady that has a history of [place]'s disease and came in with hypotension and confusion. She did have a positive drug screen for opiates and benzodiazepines. She has been cultured and started on antibiotics. There was a question of pneumonia but her x-ray looked clear. She has had extensive abdominal surgery in the past. Now she is more alert and talking. She does get confused easily. She is not coughing or short of breath. She says she is hungry now. Overall she says she is feeling better. Exam (Progress Note) - Constitutional Vitals: Period Temp Pulse Resp BP Sys/Funk Pulse Ox Last 24 Hr 97.8 F-98.2 F 63-113 14-29 61-134/40-98 95-100 General appearance: no acute distress (She is awake and talking fairly clearly now.), under weight - Head Head exam: Present: normal inspection, normocephalic - Eye Eye exam: Present: EOMI. Absent: scleral icterus Pupils: Present: CATY - ENT ENT exam: Present: normal exam - Neck Neck exam: Present: normal inspection. Absent: lymphadenopathy, thyromegaly - Respiratory Respiratory exam: Present: clear to auscultation bilaterally. Absent: wheezes - Cardiovascular Cardiovascular exam: Present: regular rate and rhythm. Absent: gallop, systolic murmur - GI/Abdominal GI/Abdominal exam: Present: soft, other (She has had extensive abdominal surgery.). Absent: distended, tenderness - Extremities Exam Extremities exam: Absent: calf tenderness, edema - Neurological Exam Neurological exam: Present: alert, altered (She is still a little confused.) - Psychiatric Psychiatric exam: Present: anxious - Skin Skin exam: Present: warm, dry Results - Labs CBC & BMP: 01/14/17 04:27 01/15/17 04:01 - Diagnostic Findings Procedure: Chest x-ray: image reviewed by me, report reviewed by me (Her chest x -ray does not show anything definite.) Assessment and Plan (1) Dehydration Status: Resolved Assessment and plan: Patient came in hypotensive with a mildly elevated BUN and is getting some fluids. Current Visit: No (2) Addisons disease Status: Chronic Assessment and plan: The patient will continue her steroids and medications for Jeremy's. Current Visit: No (3) Altered mental status Status: Resolved Assessment and plan: Her altered mental status was likely related to medications. As she is better now. Current Visit: Yes Qualifiers: Altered mental status type: somnolence Qualified Code(s): R40.0 - Somnolence (4) S/P ileal conduit Status: Acute Assessment and plan: The patient has had previous extensive abdominal surgery. She has had her colon resected Current Visit: No (5) Personal history of colon cancer Status: Chronic Assessment and plan: Patient has a history of colon cancer and apparently is doing fairly well now. Current Visit: No
--- NOTE | 2017-01-15 11:12 | Urology Consultation ---
Assessment and Plan - Time spent with patient Time spent with patient: Greater than 30 minutes (1) Recurrent UTI Status: Chronic Assessment and plan: I discussed all the measures she should be doing. We will try Hip-David gram twice a day. A prescription was written. I will make her a follow-up appointment 6-8 weeks in the office. Current Visit: Yes History of Present Illness - Data of Consult Patient: new to practice Consult date: 01/15/17 Requesting Physician: Kevin Abernathy - Consult Narrative Reason for consult: Recurrent urinary tract infection History of present illness: Ms. Blake is a 71 year old female who I had seen one time in the past. I saw her in 2010 for so-called "hydronephrosis". We evaluated her and found her not to have hydronephrosis. I have not seen her since. She is now in the ICU with medical issues. 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 She has had a previous total colectomy and has a catheterizable GI pouch. She apparently has had recurrent urinary tract infections. I questioned the patient at length on how she urinates and what she does to try to prevent infections. She does wipe front to back. She says that she drinks plenty of fluids. She says she does not hold her urine for long periods of time. She take showers and not baths. She is not having bowel movements and I am a little surprised that she is having E. coli in her urine. The last culture I can find was E. coli. On exam she does have a parastomal hernia. But there are no abdominal masses. She has normal genitalia. Catheters in the meatus and this is normal. There is no pelvic masses. I discussed preventive measures at length with the patient and her . I will also recommend we place her on Hip-David. I am checking with the pharmacy to be sure that Hip-David is compatible with a GI pouch. She cannot take capsule and I understand this. This is a tablet. CC: Kevin Abernathy MD - Home Medications and Allergies Home Medications: Home Medications Medication Instructions Recorded Confirmed Type Baclofen 5 mg PO BID 03/19/15 01/14/17 History Escitalopram [Lexapro] 10 mg PO BEDTIME 03/19/15 01/14/17 History Pantoprazole Tab [Protonix Tab] 40 mg PO DAILY 03/19/15 01/14/17 History Potassium Chloride [K-Tab ER] 20 meq PO BID 01/13/16 01/14/17 History Promethazine HCl 25 mg PO Q6HR PRN 01/13/16 01/14/17 History traMADol TAB [Ultram] 100 mg PO Q6H PRN 01/13/16 01/14/17 History Acetaminophen Tab [Tylenol Tab] 650 mg PO Q6H PRN #0 tablet 07/14/16 01/14/17 Rx Hydrocortisone Tab [Cortef Tab] 20 mg PO BEDTIME #120 tablet 07/14/16 01/14/17 Rx Hydrocortisone Tab [Cortef Tab] 20 mg PO DAILY W/BREAKFAST tablet 07/14/16 Rx Fludrocortisone [Florinef] 0.2 mg PO BID #60 tablet 09/08/16 01/14/17 Rx Ondansetron Tab [Zofran Tab] 8 mg PO Q6HR PRN 09/26/16 01/14/17 History Donepezil [Aricept] 5 mg PO BEDTIME 01/14/17 01/14/17 History prednisoLONE AC 1% OPH SUSP [Pred 1 drop RIGHT EYE QID 01/14/17 01/14/17 History Forte] Allergies/Adverse Reactions: Allergies Allergy/AdvReac Type Severity Reaction Status Date / Time No Known Allergies Allergy Verified 09/25/16 23:35 12 point system: reviewed and no additional remarkable complaints except as stated - Genitourinary Genitourinary: Absent: difficulty urinating, dysuria, hematuria, other (No nocturia) Exam - Constitutional Vitals: Period Temp Pulse Resp BP Sys/Funk Pulse Ox Last 24 Hr 97.8 F-98.2 F 63-113 14-29 61-134/40-85 95-100 - GI/Abdominal GI/Abdominal exam: Present: hernia (Parastomal right lower quadrant), soft. Absent: ascites, distended, firm, guarding, mass, tenderness, rebound - Genitourinary Genitourinary: external genitalia normal, urethra without discharge (Melton catheter in place) Results - Labs CBC & BMP: 01/14/17 04:27 01/15/17 04:01 Lab Results: I have reviewed the past 24 hour labs
[2017-01-15] MEDS: prednisoLONE ACETATE 1% OPH SUSP 5 ML BOTTLE RIGHT EYE SCH ×4 (11:53→20:19)
--- NOTE | 2017-01-15 15:15 | General Surgery Consult Note ---
Assessment and Plan - Time spent with patient Time spent with patient: Less than 30 minutes (1) Parastomal hernia of ileal conduit Status: Acute Assessment and plan: Impression: 1. Parastomal hernia reducible at the ileostomy site. 2. History of colectomy with an ileal pouch present Plan: 1. At this point as long she is not having unusual trouble emptying her pouch do not see a real need to pursue any particular surgery on her at this time. 2. Because she is planning on going back to [place] where they created the pouch I think is best that we encourage her to go in that direction since is a complicated little pouch to deal with at times. Current Visit: No History of Present Illness Chief complaint: Patient with a parastomal hernia History of present illness: Ms. Blake is a 71 year old female white who mom well versed in. She is had an ileostomy with an ileal conduit created due to ulcerative colitis and a total colectomy. She has developed a parastomal hernia that the last time she was in several months ago created a little bit of a partial obstruction that was relieved with a catheter. She is in now because of some other issues and we were asked to see him for this parastomal hernia. Apparently since her discharge she has not had any unusual problems managing her ileostomy with with the pouch. At this point will just observe her because she needs to have this revised somewhat and since her surgeon is in [place]. The plan at her last admission was to go to [place] and have this repaired fixed we not quite sure what transpired once she did make that trip at this time. Will follow with you to deal with any unusual problems with this but the basic plan is for her to go to [place] for surgery. Home Medications Medication Instructions Recorded Confirmed Type Baclofen 5 mg PO BID 03/19/15 01/14/17 History Escitalopram [Lexapro] 10 mg PO BEDTIME 03/19/15 01/14/17 History Pantoprazole Tab [Protonix Tab] 40 mg PO DAILY 03/19/15 01/14/17 History Potassium Chloride [K-Tab ER] 20 meq PO BID 01/13/16 01/14/17 History Promethazine HCl 25 mg PO Q6HR PRN 01/13/16 01/14/17 History traMADol TAB [Ultram] 100 mg PO Q6H PRN 01/13/16 01/14/17 History Acetaminophen Tab [Tylenol Tab] 650 mg PO Q6H PRN #0 tablet 07/14/16 01/14/17 Rx Hydrocortisone Tab [Cortef Tab] 20 mg PO BEDTIME #120 tablet 07/14/16 01/14/17 Rx Hydrocortisone Tab [Cortef Tab] 20 mg PO DAILY W/BREAKFAST tablet 07/14/16 Rx Fludrocortisone [Florinef] 0.2 mg PO BID #60 tablet 09/08/16 01/14/17 Rx Ondansetron Tab [Zofran Tab] 8 mg PO Q6HR PRN 09/26/16 01/14/17 History Donepezil [Aricept] 5 mg PO BEDTIME 01/14/17 01/14/17 History prednisoLONE AC 1% OPH SUSP [Pred 1 drop RIGHT EYE QID 01/14/17 01/14/17 History Forte] Allergies Allergy/AdvReac Type Severity Reaction Status Date / Time No Known Allergies Allergy Verified 09/25/16 23:35 Medical,Surgical,& Family Hx - Medical History Cardio: History of: Cardiac Dysrhythmia, CHF, [place] Psychological: History of: Anxiety Disorders, Depression Neurology: History of: Cerebrovascular Accident (2016), Dementia HEENT: History of: Ear Problem (HARD OF HEARING), Dental Problems (DENTURES ( FULL) UPPER AND LOWER) No history of: Eye Problem Endocrine: History of: Adrenal Disease (adrenal insufficiency; addisons disease) , Endocrine Problems (DAVID'S DISEASE, ADRENAL INSUFFCIENCY) Respiratory: History of: Bronchitis, Intubation, Pulmonary Embolism, Pneumonia No history of: Obstructive Sleep Apnea, Pulmonary Hypertension, Lung Cancer, Respiratory Problems Renal: History of: Renal Failure, Renal Problems (renal Calculi) Genitourinary: History of: Bladder Problem, Kidney Stones, Recurring Urinary Tract Infections No history of: Genitourinary Cancer Gastrointestinal: History of: Diverticulitis/ Diverticulosis, GERD, Gastrointestinal Bleed, Liver Problems (SPOT ON LIVER ONCE), Polyps, Gastrointestinal Cancer (colorectal cancer), GI Problems (PATIENT DOESN'T HAVE COLON OR RECTUM) No history of: Bowel Obstruction, Esophageal Varices, Hemorrhoids, Hematochezia, Hepatitis, Pancreatitis, Ulcerative Colitis Musculoskeletal: History of: Back/Neck Problems, Osteoporosis No history of: Amputation Hematology: History of: Anemia, Blood Transfusion Reaction (STAPH INFECTION FROM BLOOD INFUSION) Reproductive: History of: Abnormal Pap Smear, Ovarian Cysts Other: History of: Cancer (colo-rectal) - Surgical History Cardiac Surgeries: Patient Denies: Femoral-Popliteal Bypass Graft, Cardiac Catheterization, Cardiac Surgery, Carotid Endarterectomy, Internal Defibrillator, Vascular Access Devices Thoracic Surgeries: Patient denies;: Kidney (Renal Surgery), Lithotripsy, Nephrectomy, Organ Transplant, Lobectomy Neurologic Surgeries: Patient denies: Neurologic Surgery HEENT Surgeries: Surgical HX of: Tonsilectomy & Adenoidectomy Patient denies: Carotid Endarterectomy, Eye Surgery, Thyroid Surgery Abdominal Surgeries: Surgical HX of: Abdominal Surgery, Appendectomy, Cholecystectomy, Colonoscopy, EGD, Hernia Repair Patient denies: Gastric Bypass Surgery, Splenectomy Reproductive Surgeries: Surgical HX of;: Gynecologic Surgery, Hysterectomy Patient denies;: Cystoscopy, Genitourinary Surgery Orthopedic Surgeries: Surgical HX of;: Orthopedic Surgery (BROKEN LEFT WRIST), Total Hip Replacement (RIGHT HIP) Patient denies;: Implanted Devices, Spinal Surgery, Total Knee Replacement - Family History Family History: Reports;: Family Cancer (Mother, Aunt), Family Diabetes ( Daughter, Grandmother), Family Heart Disease (Grandfather), Family Stroke ( Mother, Grandmother, Daughter) Denies;: Family Hypertension - Social History Smoking Status: Never smoker Frequency of Alcohol Use: Unknown Type of Drug Use: None 12 point system: reviewed and no additional remarkable complaints except as stated Exam - Constitutional Vitals: Period Temp Pulse Resp BP Sys/Funk Pulse Ox Last 24 Hr 97.6 F-98.2 F 63-113 13-29 61-130/40-85 95-100 General appearance: mild distress - Head Head exam: Present: normal inspection - ENT ENT exam: Present: normal exam - Neck Neck exam: Present: normal inspection - Respiratory Respiratory exam: Present: clear to auscultation bilaterally, rales - Cardiovascular Cardiovascular exam: Present: RRR - GI/Abdominal GI/Abdominal exam: Present: hypoactive bowel sounds, hernia (Parastomal hernia and around the ileostomy site right lower quadrant), soft. Absent: distended, tenderness - Extremities Exam Extremities exam: Present: normal inspection - Back Exam Back exam: Present: normal inspection - Neurological Exam Neurological exam: Present: alert, oriented X3, CN II-XII intact - Skin Skin exam: Present: normal color, warm, dry Results - Labs CBC & BMP: 01/14/17 04:27 01/15/17 04:01 Lab Results: I have reviewed the past 24 hour labs
[2017-01-15] MEDS: DOBUTamine 500 MG/250 ML PREMIX IV SCH (19:13)
[2017-01-15] MEDS ORDERED: DONEPEZIL 5 MG TABLET PO SCH (21:00)
[2017-01-15] MEDS ORDERED: ESCITALOPRAM 10 MG TABLET PO SCH (21:00)
[2017-01-16] MEDS: DOBUTamine 500 MG/250 ML PREMIX IV SCH (00:48)
[2017-01-16] MEDS: cefTRIAXone 1,000 MG in SODIUM CHLORIDE 0.9% 100 ML IV SCH (03:51)
[2017-01-16 04:11] LABS: ABG Base Excess 1.4 MMOL/L (-2.5-2.5); ABG HCO3 25.7 MMOL/L (20-26); ABG Oxygen Saturation 95.4 % (95-100); ABG PCO2 36.1 MM HG (35-48); ABG PH 7.452 (7.35-7.45); ABG PO2 80.3 MM HG (80-95); ABG TCO2 23.2 MMOL/L (23-27); Allen Test Positive; Pt O2 Delivery Device Room Air
--- NOTE | 2017-01-16 07:49 | Discharge Summary ---
Hospital Course - Hospital Course Hospital Course: Patient 69 white female with history of Jeremy's disease that was admitted with acute sensorium changes. There is found to have benzodiazepines and opiates on urine drug screen. Patient does not know how that happened. Patient was rehydrated and started on IV steroids and her blood pressure responded accordingly. Cultures were blood in her urine were obtained which were negative. Patient has history of a dinora stomal hernia and she plans to have this repaired by a surgeon in [place]. She provides no history of increased stooling, nausea or vomiting. Patient's back to her normal sensorium present. Patient be discharged home today. She was seen in consultation by Dr. Darryn Abernathy who recommended she start Hip-David. Diagnosis - Discharge Diagnosis (1) Addisons disease Status: Chronic (2) Dehydration Status: Resolved Discharge Plan - Discharge Data Disposition: Disch To Home/Self Care Condition at Discharge: Stable Discharge Diet: advance to your usual diet Activity: resume usual activities as tolerated Hygiene: no restrictions Weight Bearing at Discharge: full weight bearing Driving: no restrictions Contact your physician if you experience:: fever over 101 - Discharge Medications New Acetaminophen Tab [Tylenol Tab] 650 mg PO Q6H PRN #0 tablet PRN Reason: Fever > 100.4 Or Headache Methenamine Hippurate [Hiprex] 1 gm PO BID #60 tablet Continue Pantoprazole Tab [Protonix Tab] 40 mg PO DAILY Escitalopram [Lexapro] 10 mg PO BEDTIME Baclofen 5 mg PO BID traMADol TAB [Ultram] 100 mg PO Q6H PRN PRN Reason: Pain Promethazine HCl 25 mg PO Q6HR PRN PRN Reason: Nausea/Vomiting Potassium Chloride [K-Tab ER] 20 meq PO BID Acetaminophen Tab [Tylenol Tab] 650 mg PO Q6H PRN #0 tablet PRN Reason: Fever > 100.4 Or Headache Hydrocortisone Tab [Cortef Tab] 20 mg PO BEDTIME #120 tablet Hydrocortisone Tab [Cortef Tab] 20 mg PO DAILY W/BREAKFAST tablet Ondansetron Tab [Zofran Tab] 8 mg PO Q6HR PRN PRN Reason: Nausea prednisoLONE AC 1% OPH SUSP [Pred Forte] 1 drop RIGHT EYE QID Fludrocortisone [Florinef] 0.2 mg PO BID #60 tablet Donepezil [Aricept] 5 mg PO BEDTIME - Follow Up or Referral - Forms/Instructions Exam - Constitutional Vitals: Period Temp Pulse Resp BP Sys/Funk Pulse Ox Last 24 Hr 97.6 F-98.4 F 62-85 13-28 96-124/53-62 95-98 Exam: Objectively well-developed white female no acute distress. She is awake and alert back to her normal symptom sensorium. Cardiovascular: Heart rates regular without murmurs or gallops. Respiratory: Lungs clear to auscultation bilaterally. Abdomen: Abdomen soft and nontender to palpation. Discharge Results Procedures and tests throughout hospitalization: Pending Orders 01/13/17 05:58 Cortisol Free 24 Hr UR Stat 01/14/17 Urine Culture Routine 01/14/17 04:27 Blood Culture Routine Labs on day of discharge: Labs from last 24 hours 01/16/17 03:58 ABG pH 7.452 H ABG pCO2 36.1 ABG pO2 80.3 ABG HCO3 25.7 ABG Total CO2 23.2 ABG O2 Saturation 95.4 ABG Base Excess 1.4 FiO2 21.00 Preliminary micro results at discharge 01/14/17 Unknown Urine Culture - Preliminary Urine,Clean Catch No Growth at 24 hours. 01/14/17 04:27 Blood Culture - Preliminary Blood No growth at 1 day 01/14/17 04:27 Blood Culture - Preliminary Blood No growth at 1 day DS: Provider Date of admission: 01/13/17 23:50 Primary care physician: . No PCP Attending physician on admission: Kevin Abernathy MD Consults: 01/14/17 02:40 Consult to Physician [CONS] Routine Comment: questionable pneumonia; Jeremy's crisis Consulting Provider: Alex Gutierrez 01/14/17 02:45 Consult to Physician [CONS] Routine Comment: ileal stoma hernia Consulting Provider: Paul Terrell 01/14/17 03:10 Consult to Physician [CONS] Routine Comment: recurrent UTI Consulting Provider: Darryn Abernathy 01/14/17 03:13 Consult to Dietitian [CONS] Routine Reason for Dietitian: Diet Recommendations Consult Comment: protein requirements Discharging clinician: Kevin Abernathy MD Expected date of discharge: 01/16/17
[2017-01-16] MEDS: BACLOFEN 10 MG TABLET PO SCH (08:55)
[2017-01-16] MEDS: FLUDROCORTISONE 0.1 MG TABLET PO SCH (08:55)
[2017-01-16] MEDS: HYDROCORTISONE 100 MG VIAL IV SCH (08:56)
[2017-01-16] MEDS: PANTOPRAZOLE 40 MG TABLET PO SCH (08:56)
[2017-01-16] MEDS: POTASSIUM CHLORIDE 20 MEQ TABLET PO SCH (08:56)
[2017-01-16] MEDS: DOCUSATE SODIUM 100 MG CAPSULE PO SCH (08:56)
[2017-01-16] MEDS ORDERED: METHENAMINE HIPPURATE 1 GM TABLET PO SCH (09:00)
--- NOTE | 2017-01-16 09:09 | Pulmonology Progress Note ---
Pulmonary - PN: Subj Interval history: The patient is a 71-year-old white lady that has a history of Licking's disease and came in with hypotension and confusion. She did have a positive drug screen for opiates and benzodiazepines. She has been cultured and started on antibiotics. There was a question of pneumonia but her x-ray looked clear. She has had extensive abdominal surgery in the past. Now she is more alert and talking. She says she feels much better today and is eating well. She is not having any trouble with her breathing. Her mental status has improved nicely. She wants to go home today. Exam (Progress Note) - Constitutional Vitals: Period Temp Pulse Resp BP Sys/Funk Pulse Ox Last 24 Hr 97.6 F-98.4 F 62-85 13-24 96-124/53-58 95-98 Exam: General appearance: no acute distress (She is alert and talking and looks comfortable.) - Head Head exam: Present: normal inspection, normocephalic - Eye Eye exam: Present: EOMI. Absent: scleral icterus Pupils: Present: CATY - ENT ENT exam: Present: normal exam - Neck Neck exam: Present: normal inspection. Absent: lymphadenopathy, thyromegaly - Respiratory Respiratory exam: Present: clear to auscultation bilaterally. Her lungs sound clear now. Absent: wheezes - Cardiovascular Cardiovascular exam: Present: regular rate and rhythm. Absent: gallop, systolic murmur - GI/Abdominal GI/Abdominal exam: Present: soft, other (She has had extensive abdominal surgery.). Absent: distended, tenderness - Extremities Exam Extremities exam: Absent: calf tenderness, edema - Neurological Exam Neurological exam: Present: She looks more alert now is talking clearly. - Psychiatric Psychiatric exam: Present: She is calm today - Skin Skin exam: Present: warm, dry Results - Labs CBC & BMP: 01/14/17 04:27 01/15/17 04:01 Assessment and Plan (1) Addisons disease Status: Chronic Assessment and plan: The patient will continue her steroids and medications for Jeremy's. Her blood pressure has been reasonable. Current Visit: No (2) Altered mental status Status: Resolved Assessment and plan: Her altered mental status was likely related to medications. As she is better now. She looks like she is back to baseline. Current Visit: Yes Qualifiers: Altered mental status type: somnolence Qualified Code(s): R40.0 - Somnolence (3) S/P ileal conduit Status: Acute Assessment and plan: The patient has had previous extensive abdominal surgery. She has had her colon resected. Surgery has evaluated. Current Visit: No (4) Personal history of colon cancer Status: Chronic Assessment and plan: Patient has a history of colon cancer and apparently is doing fairly well now. Current Visit: No
[2017-01-16] MEDS: prednisoLONE ACETATE 1% OPH SUSP 5 ML BOTTLE RIGHT EYE SCH (10:34)
[2017-01-16 10:50] VITALS: BP 111/57
== END 2017-01-16 10:45 | disposition home or self-care (01) | DRG 918 ==
LOC: N.ED 21:31 → N.EDINP 23:50 → N.CC 01-14 01:26 → N.2E 01-15 21:06
PROVIDERS: ADMIT Family Medicine; ATTEND Family Medicine

== ENCOUNTER 2017-04-02 09:19 | Inpatient (IN) ==
[2017-04-02] MEDS ORDERED: SODIUM CHLORIDE 0.9% 500 ML IV STA (09:43)
--- NOTE | 2017-04-02 09:50 | Emergency Department Note ---
Arrival - Arrival Chief Complaint: Extremity Problem Stated Complaint: non traumatic hip pain ED Nursing Triage Note: PT C/O NONTRAUMATIC BILATERAL HIP PAIN. PT IS FOLLOWED BY DR PATTERSON FOR "BRITTLE BONES." NO OBVIOUS DEFORMITY NOTED. PT GIVEN MORPHINE 10MG IVP EN ROUTE BY EMS Mode of Arrival: Stretcher Limitations: No Limitations Source: Patient Time Seen by Provider: 04/02/17 09:42 - History of Present Illness HPI Narrative: This 71-year-old white female with chronic Stanley's disease for which she has received supplemental steroids for years presents with complaints of bilateral hip pain and inability to walk since Sunday 2 days ago. Up until that time she has been able to ambulate with her walker. She states she is having extremely severe pain in both hips. She denies any falls or injuries Sunday. She is followed both by Dr. Abernathy and Dr. Patterson with a history of multiple fractures throughout the pelvis and weightbearing area due to brittle bones from chronic steroids. Likewise, the relates significant complaints with high fevers during the weekend although she has no temperature at this time. She was flushed and had chills at times yesterday. She denies any cough, sinus complaints, headache, nausea, vomiting, but does complain of suprapubic tenderness. She is otherwise medically stable. Onset (ago): day(s) (Patient presents 2 days post onset of symptoms) Allergies/Adverse Reactions: Allergies Allergy/AdvReac Type Severity Reaction Status Date / Time No Known Allergies Allergy Verified 04/02/17 09:32 Home Medications: Home Medications Medication Instructions Recorded Confirmed Type Baclofen 10 mg PO BID PRN 03/19/15 03/21/17 History Pantoprazole Tab [Protonix Tab] 40 mg PO BID 03/19/15 03/21/17 History Potassium Chloride [K-Tab ER] 20 meq PO BID 01/13/16 03/21/17 History traMADol TAB [Ultram] 50 mg PO Q6H PRN 01/13/16 03/21/17 History Hydrocodone/Acetaminophen 0.5 - 1 each PO Q6H PRN 02/09/17 03/21/17 History [Hydrocodon-Acetaminoph 7.5-325] Calcium Carbonate/Vitamin D3 1 each PO DAILY 02/13/17 03/21/17 History [Calcium 600-Vit D3 400 Tablet] Fludrocortisone [Florinef] 0.2 mg PO BID 02/13/17 03/21/17 History Hydrocortisone [Hydrocortisone Tab] 20 mg PO BID 02/13/17 03/21/17 History Nitroglycerin Sl Tab [Nitrostat] 0.4 mg SL Q5M PRN 02/13/17 03/21/17 History Donepezil [Aricept] 5 mg PO BEDTIME 02/15/17 03/21/17 History Fluconazole Tab [Diflucan Tab] 150 mg PO DAILY 03/21/17 03/21/17 History Methenamine Hippurate [Hiprex] 1,000 gm PO BID 03/21/17 03/21/17 History Ondansetron HCl 8 mg PO BID PRN 03/21/17 03/21/17 History Sulfameth/Trimeth 800-160 Tab 1 tablet PO BID #14 tablet 03/21/17 Rx [Bactrim DS Tab] Review of System - Review of System 12 point system: reviewed and no additional remarkable complaints except as stated - Review of System Head/Ears/Nose/Throat: Present: see HPI Respiratory: Present: as per HPI Gastrointestinal: Present: as per HPI Genitourinary female: Present: as per HPI Musculoskeletal: Present: as per HPI Medical,Surgical,& Family Hx - Medical History Cardio: History of: Cardiac Dysrhythmia, CHF, MS Psychological: History of: Anxiety Disorders, Depression Neurology: History of: Cerebrovascular Accident (2016), Dementia No history of: Seizures HEENT: History of: Ear Problem (HARD OF HEARING), Dental Problems (DENTURES ( FULL) UPPER AND LOWER) No history of: Eye Problem Endocrine: History of: Adrenal Disease (adrenal insufficiency; addisons disease) , Endocrine Problems (DAVID'S DISEASE, ADRENAL INSUFFCIENCY) Respiratory: History of: Bronchitis, Intubation, Pulmonary Embolism, Pneumonia No history of: Obstructive Sleep Apnea, Pulmonary Hypertension, Lung Cancer, Respiratory Problems Renal: History of: Renal Failure, Renal Problems (renal Calculi) Genitourinary: History of: Bladder Problem, Kidney Stones, Recurring Urinary Tract Infections No history of: Genitourinary Cancer Gastrointestinal: History of: Diverticulitis/ Diverticulosis, GERD, Gastrointestinal Bleed, Liver Problems (SPOT ON LIVER ONCE), Polyps, Gastrointestinal Cancer (colorectal cancer 2004), GI Problems (PATIENT DOESN'T HAVE COLON OR RECTUM) No history of: Bowel Obstruction, Esophageal Varices, Hemorrhoids, Hematochezia, Hepatitis, Pancreatitis, Ulcerative Colitis Musculoskeletal: History of: Back/Neck Problems, Osteoporosis, Musculoskeletal Problems No history of: Amputation Hematology: History of: Anemia, Blood Transfusion Reaction (STAPH INFECTION FROM BLOOD INFUSION) Reproductive: History of: Abnormal Pap Smear, Ovarian Cysts Other: History of: Cancer (colo-rectal) No history of: Anesthesia Reactions - Surgical History Cardiac Surgeries: Patient Denies: Femoral-Popliteal Bypass Graft, Cardiac Catheterization, Cardiac Surgery, Carotid Endarterectomy, Internal Defibrillator, Vascular Access Devices Thoracic Surgeries: Patient denies;: Kidney (Renal Surgery), Lithotripsy, Nephrectomy, Organ Transplant, Lobectomy Neurologic Surgeries: Patient denies: Neurologic Surgery HEENT Surgeries: Surgical HX of: Eye Surgery (Cataract), Tonsilectomy & Adenoidectomy Patient denies: Carotid Endarterectomy, Thyroid Surgery Abdominal Surgeries: Surgical HX of: Abdominal Surgery, Appendectomy, Cholecystectomy, Colonoscopy, EGD, Hernia Repair Patient denies: Gastric Bypass Surgery, Splenectomy Reproductive Surgeries: Surgical HX of;: Gynecologic Surgery, Hysterectomy Patient denies;: Cystoscopy, Genitourinary Surgery Orthopedic Surgeries: Surgical HX of;: Orthopedic Surgery (BROKEN LEFT WRIST), Total Hip Replacement (RIGHT HIP, Left hip replacement x 2) Patient denies;: Implanted Devices, Spinal Surgery, Total Knee Replacement - Family History Family History: Reports;: Family Cancer (Mother, Aunt), Family Diabetes ( Daughter, Grandmother), Family Heart Disease (Grandfather), Family Stroke ( Mother, Grandmother, Daughter) Denies;: Family Anesthesia Reaction, Family Hypertension - Social History Smoking Status: Never smoker Frequency of Alcohol Use: None Type of Drug Use: None Exam Physical Examination: GENERAL: Fragile chronically ill-appearing white female in no acute distress. HEENT: Normocephalic. No trauma. Moist mucous membranes. EOMI. PERRLA. ENT NML NECK: Supple. No adenopathy. CARDIAC: Regular. No murmurs. Heart rate 98 CHEST: Clear to auscultation. No respiratory distress. O2 saturation 98%. Right chest wall MediPort ABDOMEN: Soft. Suprapubic tenderness with hypoactive bowel sounds. EXTREMITIES: No trauma. Severe pain with any attempts at range of motion of the hips as well as palpation of pelvis. No pedal edema. SKIN: No diaphoresis. No rash. NEURO: Alert. Oriented to person and place, time not so well. Motor, sensory, vibratory intact. No focal deficits. Vital Signs: Vital Signs Temperature 98.2 F 04/02/17 09:39 Pulse Rate 83 04/02/17 10:00 Respiratory Rate 18 04/02/17 10:00 Blood Pressure 102/52 04/02/17 10:00 O2 Sat by Pulse Oximetry 99 04/02/17 10:00 Course - Reevaluation(s) Reevaluation #1: Discussed with patient the need for hospitalization given her diffuse abnormalities - Consultations Consultation #1: Discussed with Dr. Abernathy who will admit for further evaluation and treatment. Results - Labs CBC & BMP: 04/02/17 10:10 04/02/17 10:10 Labs: I reviewed the lab results and noted the elevated white blood cell count, infected urine, and very low potassium. - Diagnostic Findings Procedure: Chest x-ray: image reviewed by me, report reviewed by me (No acute disease.), X-ray: image reviewed by me, report reviewed by me (Pelvis: Healing pelvic fractures with evidence of osteonecrosis of the right hip otherwise no new fractures.) Disposition Clinical Impression: Severe anemia, Hypokalemia, Cystitis, Healing pelvic fractures, Right hip osteonecrosis Case discussed with: patient, patient's family Disposition: Still a Patient Condition: Guarded Time of Disposition: 11:35
[2017-04-02 10:27] LABS: Basophils % 0.1 % (0.0-0.8); Eosinophils % 0.1 % (0.00-10.9); Hematocrit 19.5 VOL% (35.7-47.0); Immature Granulocytes % 2.5 %; Immature Granulocytes Absolute 0.33 #; Lymphocytes # 0.8 10*3/uL (1.4-4.0); Lymphocytes % 6.4 % (21.3-54.2); Mean Corpuscular HGB Conc 29.7 GM/DL (32-36); Mean Corpuscular Hemoglobin 22 PG (27-34); Mean Corpuscular Volume 75.3 FL (87-102); Mean Platelet Volume 10.1 FL (9.6-12.0); Monocytes % 7.9 % (1.7-12.7); Neutrophils # 10.9 10*3/uL (1.4-7.4); Platelet Count 238 T/CUMM (130-400); Red Blood Count 2.59 MC/CUMM (3.8-5.5); Red Cell Distribution Width 17.1 % (9.3-17.3); White Blood Count 13.1 T/CUMM (4-12)
[2017-04-02 10:33] LABS: Hemoglobin 5.8 GM/DL (12.0-16.0)
[2017-04-02 10:35] LABS: PT Patient Result 10.9 SECS
--- NOTE | 2017-04-02 10:38 | XRay Report ---
History: Fever Date: 04/02/2017 Study: Chest x-ray AP portable Comparison exam: January 17, 2017 The right subclavian Mediport-type catheter is stable in position. The cardiac silhouette is upper normal in size. There is no mediastinal mass. The pulmonary vasculature is not engorged. There is no pleural effusion. There is no acute infiltrate. There are some scattered emphysematous changes in the lungs. There is mild parenchymal and pleural scarring in either lung apex. There is no pleural effusion. Osseous structures are unchanged. Impression: No acute cardiopulmonary process compared to the previous study PROCEDURE INTERPRETED AT [facility] DEPARTMENT OF RADIOLOGY Final Report Signed by: Dr. Milagros Soriano
[2017-04-02 10:57] LABS: Apearance,Urine Slightly Hazy (Clear); Bacteria,Urine Many /HPF (Few); Bilirubin,Urine Negative (Negative); Blood, Urine Large mg/dL (Negative); Glucose,Urine (UA) Negative (Negative); Ketones,Urine Negative (Negative); Mucus,Urine Occasional /LPF (Occasional); Nitrite,Urine Positive (Negative); Protein,Urine 30 MG/DL; RBC,Urine 25 /HPF (0-4); Urine Color Yellow (Yellow); Urine Specific Gravity 1.011 (1.001-1.035); Urine Urobilinogen < 2.0 EU/DL (0.2-1.0); WBC,Urine 40 /HPF (0-6)
--- NOTE | 2017-04-02 11:02 | XRay Report ---
History: Pelvic pain Date: 04/02/2017 Study: Pelvis 3 views Comparison exam: February 09, 2017 pelvis x-ray There is a minimally displaced healing fracture of the left pubic bone which is thought to be subacute. There is relatively good alignment. There is some resorption about the vertical fracture plane with some potential early callus formation. There is also healing nondisplaced hairline fracture with sclerosis of the right pubic bone which was not present on the previous exam. There has been previous left hip replacement. The left hip prosthesis is well conjugated. There is some asymmetric sclerosis of the right femoral head as before. Underlying avascular necrosis of the right hip is suspected as before. There is osteopenia. Impression: Healing subacute fractures of either pubic bone which were not apparent on the comparison study. No acute hip fracture. Probable osteonecrosis right femoral head. Previous left hip replacement. Suspected osteopenia PROCEDURE INTERPRETED AT [facility] DEPARTMENT OF RADIOLOGY Final Report Signed by: Dr. Milagros Soriano
[2017-04-02] MEDS ORDERED: LEVOFLOXACIN INJ 750 MG in PREMIX 1 EACH IV STA (11:03)
[2017-04-02 11:07] LABS: Alanine Aminotransferase 17 U/L (13-56); Albumin 2.3 G/DL (3.4-5.0); Alkaline Phosphatase 125 U/L (45-117); Aspartate Amino Transferase 21 U/L (0-37); Bilirubin,Total < 0.39 MG/DL (0.2-1.0); Blood Urea Nitrogen 15 MG/DL (7-18); Calcium 7.9 MG/DL (8.5-10.1); Glucose 83 MG/DL (74-106); Potassium 2.9 MMOL/L (3.5-5.1); Sodium 136 MMOL/L (136-145); Total Protein 4.8 G/DL (6.4-8.3)
[2017-04-02] MEDS ORDERED: POTASSIUM BICARB EFFERVESCENT 25 MEQ TABLET PO ONE ×2 (11:31→17:00)
[2017-04-02] MEDS ORDERED: LEVOFLOXACIN IV ONE (11:32)
[2017-04-02] MEDS ORDERED: HYDROmorphone 2 MG/1 ML VIAL IV PRN (11:36)
[2017-04-02] MEDS ORDERED: POTASSIUM CHLORIDE 20 MEQ TABLET PO STA (11:36)
[2017-04-02] MEDS ORDERED: POTASSIUM CHLORIDE 20 MEQ TABLET PO ONE (12:40)
--- NOTE | 2017-04-02 13:03 | Family Practice History&Phys ---
Assessment and Plan (1) Osteonecrosis of right hip Status: Acute Assessment and plan: 04/02/2017: We will discuss patient with Dr. Wadsworth. Current Visit: Yes (2) Symptomatic anemia Status: Acute Assessment and plan: 04/02/2017: Transfusion will be begun. GI will be consulted. Current Visit: Yes (3) Addisons disease Status: Chronic Assessment and plan: 04/02/2017: Will add IV Solu-Cortef Current Visit: No (4) Altered mental status Status: Resolved Assessment and plan: 04/02/2017: Patient appears to have metabolic encephalopathy related to multiple factors. Current Visit: No Qualifiers: Altered mental status type: somnolence Qualified Code(s): R40.0 - Somnolence History of Present Illness Chief complaint: Hip pain and weakness History of present illness: Ms. Blake is a 71 year old female Patient is a 71-year-old white female presents emergency room complaining of bilateral hip pain which is severe and limits her activity. Patient states she is also been quite weak and having nausea, vomiting and dysuria. She had fever at home according to her but refused to come to the emergency room until today. Patient was found to be profoundly anemic and hypotensive on arrival to emergency room. She denied any history of GI bleeding but admits she did not check her stool when she changed her ileostomy bag. Patient's states she did not measure her temperature but she has been quite warm for the last several days. Patient denies any shortness of breath or chest pain. Home Medications Medication Instructions Recorded Confirmed Type Baclofen 10 mg PO BID PRN 03/19/15 04/02/17 History Pantoprazole Tab [Protonix Tab] 40 mg PO BID 03/19/15 04/02/17 History Potassium Chloride [K-Tab ER] 20 meq PO BID 01/13/16 04/02/17 History traMADol TAB [Ultram] 50 mg PO Q6H PRN 01/13/16 04/02/17 History Hydrocodone/Acetaminophen 1 each PO Q6H PRN 02/09/17 04/02/17 History [Hydrocodon-Acetaminoph 7.5-325] Calcium Carbonate/Vitamin D3 1 each PO DAILY 02/13/17 04/02/17 History [Calcium 600-Vit D3 400 Tablet] Fludrocortisone [Florinef] 0.2 mg PO BID 02/13/17 04/02/17 History Hydrocortisone [Hydrocortisone Tab] 10 mg PO BID 02/13/17 04/02/17 History Nitroglycerin Sl Tab [Nitrostat] 0.4 mg SL Q5M PRN 02/13/17 04/02/17 History Donepezil [Aricept] 5 mg PO BEDTIME 02/15/17 04/02/17 History Ondansetron HCl 8 mg PO BID PRN 03/21/17 04/02/17 History Allergies Allergy/AdvReac Type Severity Reaction Status Date / Time No Known Allergies Allergy Verified 04/02/17 09:32 - Constitutional Constitutional: Present: chills, fatigue, fever(s), weakness - EENT Eyes: Absent: blurry vision, loss of vision Ears: Absent: decreased hearing, ear pain Nose, mouth and throat: Absent: nasal congestion, sinus pressure, sore throat - Cardiovascular Cardiovascular: Absent: chest pain at rest, chest pain with activity, orthopnea , palpitations, PND - Respiratory Respiratory: Absent: cough, dyspnea - Gastrointestinal Gastrointestinal: Present: abdominal pain, nausea, vomiting. Absent: hematemesis, hematochezia - Genitourinary Genitourinary: Present: dysuria. Absent: flank pain, hematuria, urinary hesitancy, urinary incontinence - Musculoskeletal Musculoskeletal: Absent: arthralgias, back pain - Neurological Neurological: Absent: confusion, focal weakness, numbness, paresthesias - Psychiatric Psychiatric: Present: anxiety. Absent: confusion, depression - Endocrine Endocrine: Present: fatigue. Absent: polydipsia, polyphagia Medical,Surgical,& Family Hx - Medical History Cardio: History of: Cardiac Dysrhythmia, CHF, ID Psychological: History of: Anxiety Disorders, Depression Neurology: History of: Cerebrovascular Accident (2016), Dementia No history of: Seizures HEENT: History of: Ear Problem (HARD OF HEARING), Dental Problems (DENTURES ( FULL) UPPER AND LOWER) No history of: Eye Problem Endocrine: History of: Adrenal Disease (adrenal insufficiency; addisons disease) , Endocrine Problems (DAVID'S DISEASE, ADRENAL INSUFFCIENCY) Respiratory: History of: Bronchitis, Intubation, Pulmonary Embolism, Pneumonia No history of: Obstructive Sleep Apnea, Pulmonary Hypertension, Lung Cancer, Respiratory Problems Renal: History of: Renal Failure, Renal Problems (renal Calculi) Genitourinary: History of: Bladder Problem, Kidney Stones, Recurring Urinary Tract Infections No history of: Genitourinary Cancer Gastrointestinal: History of: Diverticulitis/ Diverticulosis, GERD, Gastrointestinal Bleed, Liver Problems (SPOT ON LIVER ONCE), Polyps, Gastrointestinal Cancer (colorectal cancer 2004), GI Problems (PATIENT DOESN'T HAVE COLON OR RECTUM) No history of: Bowel Obstruction, Esophageal Varices, Hemorrhoids, Hematochezia, Hepatitis, Pancreatitis, Ulcerative Colitis Musculoskeletal: History of: Back/Neck Problems, Osteoporosis, Musculoskeletal Problems No history of: Amputation Hematology: History of: Anemia, Blood Transfusion Reaction (STAPH INFECTION FROM BLOOD INFUSION) Reproductive: History of: Abnormal Pap Smear, Ovarian Cysts Other: History of: Cancer (colo-rectal) No history of: Anesthesia Reactions - Surgical History Cardiac Surgeries: Patient Denies: Femoral-Popliteal Bypass Graft, Cardiac Catheterization, Cardiac Surgery, Carotid Endarterectomy, Internal Defibrillator, Vascular Access Devices Thoracic Surgeries: Patient denies;: Kidney (Renal Surgery), Lithotripsy, Nephrectomy, Organ Transplant, Lobectomy Neurologic Surgeries: Patient denies: Neurologic Surgery HEENT Surgeries: Surgical HX of: Eye Surgery (Cataract), Tonsilectomy & Adenoidectomy Patient denies: Carotid Endarterectomy, Thyroid Surgery Abdominal Surgeries: Surgical HX of: Abdominal Surgery, Appendectomy, Cholecystectomy, Colonoscopy, EGD, Hernia Repair Patient denies: Gastric Bypass Surgery, Splenectomy Reproductive Surgeries: Surgical HX of;: Gynecologic Surgery, Hysterectomy Patient denies;: Cystoscopy, Genitourinary Surgery Orthopedic Surgeries: Surgical HX of;: Orthopedic Surgery (BROKEN LEFT WRIST), Total Hip Replacement (RIGHT HIP, Left hip replacement x 2) Patient denies;: Implanted Devices, Spinal Surgery, Total Knee Replacement - Family History Family History: Reports;: Family Cancer (Mother, Aunt), Family Diabetes ( Daughter, Grandmother), Family Heart Disease (Grandfather), Family Stroke ( Mother, Grandmother, Daughter) Denies;: Family Anesthesia Reaction, Family Hypertension - Social History Smoking Status: Never smoker Frequency of Alcohol Use: None Type of Drug Use: None Exam - Constitutional Vitals: Period Temp Pulse Resp BP Sys/Funk Pulse Ox Last 24 Hr 98.2 F-98.2 F 71-106 16-20 100-130/47-72 95-99 Exam: General: Objective patient is a well-developed white female who is pale but warm to the touch of her extremities. Patient is alert and able answer questions appropriately. She admits she should have come to the hospital sooner as she has been sick for several days now. HEENT: Pupils equal and reactive to light. Patent nares and airway, conjunctiva are pale Neck: No meningismus, adenopathy, thyromegaly. There are no auscultated carotid bruits. Cardiovascular: Regular rhythm. No murmurs or gallops Chest: Clear to auscultation without rales rhonchi wheezes. Abdomen: Soft nontender to palpation No masses, rebound, guarding or tenderness. Neuro: Cranial nerves intact and DTRs and strength symmetric in all extremities. Dermatologic: No evidence of abnormal lesions or masses. Musculoskeletal: Patient has pain with right hip rotation. Extremities: There is no calf swelling or tenderness., Patient has pallor to her palms. Results - Labs CBC & BMP: 04/02/17 10:10 04/02/17 10:10
[2017-04-02] MEDS ORDERED: NITROGLYCERIN SL 0.4 MG TABLET SL PRN (13:47)
[2017-04-02] MEDS ORDERED: SODIUM CHLORIDE 0.9% 250 ML IV PRN (13:47)
[2017-04-02] MEDS ORDERED: BACLOFEN 10 MG TABLET PO PRN (13:47)
[2017-04-02] MEDS: LEVOFLOXACIN INJ 750 MG in PREMIX 1 EACH IV SCH (14:16)
[2017-04-02 14:29] LABS: Hematocrit 18.9 VOL% (35.7-47.0)
--- NOTE | 2017-04-02 14:30 | Gastrointestinal Consult Note ---
Assessment and Plan (1) Anemia Status: Acute Assessment and plan: 04/02-Recent onset of weakness/fatigue with findings of HH 5/18 with vague reports of some blood in ileostomy (not a new finding). Hx of blood transfusions with total of 5u PRBC over the last year prior to this admission. Last known endoscopy in 2009 to remove irrigation tube from ostomy and EGD in 2010. To be transfused 2 units PRBC today. Further plan and addendum to follow by Dr Soriano. Current Visit: No History of Present Illness Chief complaint: Anemia History of present illness: Ms. Blake is a 71 year old female who was admitted to the hospital with onset of bilateral hip pain and weakness. Pt is a poor historian at this time and unable to provide specifics regarding her health history. Information is obtained from chart review with no family present during visit. Pt has a history of colon cancer and small bowel obstruction in 2006 with continent ileostomy, CHF, NC, dementia and Addisons disease. Pt was admitted to the hospital after patients spouse noted she had become weaker over the last several days and was more lethargic than usual. She also had some reported nausea and vomiting as well as subjective fever and chills. She was found on admission to be profoundly anemic as well as hypotensive. H&H on admission noted to be 5/18. Patient also found to have some leukocytosis with WBCs at 13, 000. UA is pending at this time. Patient states that she does not recall having any increased bleeding from her ostomy site however states that she does routinely have a small amount of bright red blood at times. She also complains of some GERD which seem to be worsened as of recently. Patient takes Protonix at home routinely for this. She denies any coffee-ground emesis or hematemesis with vomiting episodes. She denies any NSAID use. Patient states that she feels that she has had some recent weight loss due to decreased appetite. Looking back, her last admission in October patient is down approximately 7-8 pounds. Her last endoscopy was noted with a C scope in 2009) to remove irrigation catheter from ileostomy) and last EGD in 2010 (previous antrectomy, normal gastric polyps, history of Billroth I). Patient also has a history of peristomal hernia in which she was supposed to seek repair by her surgeon in [place] Home Medications Medication Instructions Recorded Confirmed Type Baclofen 10 mg PO BID PRN 03/19/15 04/02/17 History Pantoprazole Tab [Protonix Tab] 40 mg PO BID 03/19/15 04/02/17 History Potassium Chloride [K-Tab ER] 20 meq PO BID 01/13/16 04/02/17 History traMADol TAB [Ultram] 50 mg PO Q6H PRN 01/13/16 04/02/17 History Hydrocodone/Acetaminophen 1 each PO Q6H PRN 02/09/17 04/02/17 History [Hydrocodon-Acetaminoph 7.5-325] Calcium Carbonate/Vitamin D3 1 each PO DAILY 02/13/17 04/02/17 History [Calcium 600-Vit D3 400 Tablet] Fludrocortisone [Florinef] 0.2 mg PO BID 02/13/17 04/02/17 History Hydrocortisone [Hydrocortisone Tab] 10 mg PO BID 02/13/17 04/02/17 History Nitroglycerin Sl Tab [Nitrostat] 0.4 mg SL Q5M PRN 02/13/17 04/02/17 History Donepezil [Aricept] 5 mg PO BEDTIME 02/15/17 04/02/17 History Ondansetron HCl 8 mg PO BID PRN 03/21/17 04/02/17 History Allergies Allergy/AdvReac Type Severity Reaction Status Date / Time No Known Allergies Allergy Verified 04/02/17 09:32 Medical,Surgical,& Family Hx - Medical History Cardio: History of: Cardiac Dysrhythmia, CHF, NC Psychological: History of: Anxiety Disorders, Depression Neurology: History of: Cerebrovascular Accident (2016), Dementia No history of: Seizures HEENT: History of: Ear Problem (HARD OF HEARING), Dental Problems (DENTURES ( FULL) UPPER AND LOWER) No history of: Eye Problem Endocrine: History of: Adrenal Disease (adrenal insufficiency; addisons disease) , Endocrine Problems (DAVID'S DISEASE, ADRENAL INSUFFCIENCY) Respiratory: History of: Bronchitis, Intubation, Pulmonary Embolism, Pneumonia No history of: Obstructive Sleep Apnea, Pulmonary Hypertension, Lung Cancer, Respiratory Problems Renal: History of: Renal Failure, Renal Problems (renal Calculi) Genitourinary: History of: Bladder Problem, Kidney Stones, Recurring Urinary Tract Infections No history of: Genitourinary Cancer Gastrointestinal: History of: Diverticulitis/ Diverticulosis, GERD, Gastrointestinal Bleed, Liver Problems (SPOT ON LIVER ONCE), Polyps, Gastrointestinal Cancer (colorectal cancer 2004), GI Problems (PATIENT DOESN'T HAVE COLON OR RECTUM) No history of: Bowel Obstruction, Esophageal Varices, Hemorrhoids, Hematochezia, Hepatitis, Pancreatitis, Ulcerative Colitis Musculoskeletal: History of: Back/Neck Problems, Osteoporosis, Musculoskeletal Problems No history of: Amputation Hematology: History of: Anemia, Blood Transfusion Reaction (STAPH INFECTION FROM BLOOD INFUSION) Reproductive: History of: Abnormal Pap Smear, Ovarian Cysts Other: History of: Cancer (colo-rectal) No history of: Anesthesia Reactions - Surgical History Cardiac Surgeries: Patient Denies: Femoral-Popliteal Bypass Graft, Cardiac Catheterization, Cardiac Surgery, Carotid Endarterectomy, Internal Defibrillator, Vascular Access Devices Thoracic Surgeries: Patient denies;: Kidney (Renal Surgery), Lithotripsy, Nephrectomy, Organ Transplant, Lobectomy Neurologic Surgeries: Patient denies: Neurologic Surgery HEENT Surgeries: Surgical HX of: Eye Surgery (Cataract), Tonsilectomy & Adenoidectomy Patient denies: Carotid Endarterectomy, Thyroid Surgery Abdominal Surgeries: Surgical HX of: Abdominal Surgery, Appendectomy, Cholecystectomy, Colonoscopy, EGD, Hernia Repair Patient denies: Gastric Bypass Surgery, Splenectomy Reproductive Surgeries: Surgical HX of;: Gynecologic Surgery, Hysterectomy Patient denies;: Cystoscopy, Genitourinary Surgery Orthopedic Surgeries: Surgical HX of;: Orthopedic Surgery (BROKEN LEFT WRIST), Total Hip Replacement (RIGHT HIP, Left hip replacement x 2) Patient denies;: Implanted Devices, Spinal Surgery, Total Knee Replacement - Family History Family History: Reports;: Family Cancer (Mother, Aunt), Family Diabetes ( Daughter, Grandmother), Family Heart Disease (Grandfather), Family Stroke ( Mother, Grandmother, Daughter) Denies;: Family Anesthesia Reaction, Family Hypertension - Social History Smoking Status: Never smoker Frequency of Alcohol Use: None Type of Drug Use: None - Constitutional Constitutional: Present: as per HPI, fatigue, lethargy - EENT Eyes: Present: as per HPI Ears: Present: as per HPI Nose, mouth and throat: Present: as per HPI - Cardiovascular Cardiovascular: Present: as per HPI - Respiratory Respiratory: Present: as per HPI - Gastrointestinal Gastrointestinal: Present: as per HPI - Genitourinary Genitourinary: Present: as per HPI - Musculoskeletal Musculoskeletal: Present: as per HPI - Neurological Neurological: Present: as per HPI - Psychiatric Psychiatric: Present: as per HPI - Endocrine Endocrine: Present: as per HPI - Hematologic/Lymphatic Hematologic/Lymphatic: Present: as per HPI Exam - Constitutional Vitals: Period Temp Pulse Resp BP Sys/Funk Pulse Ox Last 24 Hr 98.2 F-98.2 F 71-108 16-20 99-130/47-72 95-100 General appearance: normal weight, no acute distress - Head Head exam: Present: normal inspection, normocephalic - Eye Eye exam: Present: other (lids and conjunctiva unremarkable). Absent: scleral icterus - ENT ENT exam: Present: normal exam, normal oropharynx - Neck Neck exam: Present: normal inspection - Respiratory Respiratory exam: Present: clear to auscultation bilaterally. Absent: rales, rhonchi, wheezes - Cardiovascular Cardiovascular exam: Present: regular rate and rhythm. Absent: diastolic murmur , JVD, systolic murmur - GI/Abdominal GI/Abdominal exam: Present: normal bowel sounds, soft. Absent: ascites, distended, mass, organomegaly, tenderness - Extremities Exam Extremities exam: Present: normal inspection, full ROM - Back Exam Back exam: Present: normal inspection - Neurological Exam Neurological exam: Present: alert, altered - Psychiatric Psychiatric exam: Present: normal affect, normal mood - Skin Skin exam: Present: warm, pallor Results - Labs CBC & BMP: 04/02/17 10:10 04/02/17 10:10 Lab Results: I have reviewed the past 24 hour labs
[2017-04-02 14:34] LABS: Hemoglobin 5.5 GM/DL (12.0-16.0)
[2017-04-02] MEDS: HYDROCORTISONE 100 MG VIAL IV SCH (14:35)
[2017-04-02 14:43] LABS: PT Patient Result 10.8 SECS; Partial Thromboplastin Time 22.6 SECS (0-40)
[2017-04-02] MEDS ORDERED: PANTOPRAZOLE 40 MG VIAL IV SCH (21:00)
[2017-04-02] MEDS: DONEPEZIL 5 MG TABLET PO SCH (21:39)
[2017-04-02] MEDS: FLUDROCORTISONE 0.1 MG TABLET PO SCH (21:39)
[2017-04-02] MEDS: POTASSIUM CHLORIDE 20 MEQ TABLET PO SCH (21:39)
[2017-04-02] MEDS: PANTOPRAZOLE 40 MG VIAL IV SCH (21:41)
[2017-04-02] MEDS: BACLOFEN 10 MG TABLET PO SCH (21:41)
[2017-04-02] MEDS: SODIUM CHLORIDE 0.9% 1,000 ML IV SCH ×2 (22:33→22:34)
[2017-04-02 23:34] LABS: Hematocrit 27.7 VOL% (35.7-47.0)
[2017-04-02 23:37] LABS: Hemoglobin 9.1 GM/DL (12.0-16.0)
[2017-04-03] MEDS: HYDROCORTISONE 100 MG VIAL IV SCH ×2 (01:33→11:48)
[2017-04-03 03:22] LABS: INR 1.1
[2017-04-03 03:23] LABS: Basophils % 0.1 % (0.0-0.8); Eosinophils % 0.1 % (0.00-10.9); Hemoglobin 9.4 GM/DL (12.0-16.0); Immature Granulocytes % 2.7 %; Immature Granulocytes Absolute 0.32 #; Lymphocytes # 0.5 10*3/uL (1.4-4.0); Lymphocytes % 4.4 % (21.3-54.2); Mean Corpuscular HGB Conc 32.4 GM/DL (32-36); Mean Corpuscular Hemoglobin 25 PG (27-34); Mean Corpuscular Volume 78.2 FL (87-102); Mean Platelet Volume 10.6 FL (9.6-12.0); Monocytes # 1.1 10*3/uL (0.11-0.8); Monocytes % 9.1 % (1.7-12.7); Neutrophils # 9.8 10*3/uL (1.4-7.4); Neutrophils % 83.6 % (38.7-73.9); Platelet Count 181 T/CUMM (130-400); Red Blood Count 3.71 MC/CUMM (3.8-5.5); Red Cell Distribution Width 16.2 % (9.3-17.3); White Blood Count 11.8 T/CUMM (4-12)
[2017-04-03 03:35] LABS: Bilirubin,Total 0.4 MG/DL (0.2-1.0); Calcium 7.8 MG/DL (8.5-10.1); Osmolality,Calculated 277.4 MOS/KG (273-304); Potassium 3.7 MMOL/L (3.5-5.1); Total Protein 4.3 G/DL (6.4-8.3)
[2017-04-03 06:22] LABS: Total Cells Counted 100
[2017-04-03 06:23] LABS: Band Neutrophils 3 % (0-10); Lymphocytes 7 % (20-55); Platelet Estimate Normal; Segmented Neutrophils 82 % (50-85)
[2017-04-03] MEDS: SODIUM CHLORIDE 0.9% 1,000 ML IV SCH ×2 (06:37→18:27)
--- NOTE | 2017-04-03 07:32 | Family Practice Progress Note ---
Family Practice - PN: Subj Interval history: Patient states she had a good night and feels much better. Her hematocrit is up to 29% this morning. She has not seen any blood in her stool but she does have heme positive stool. She denies any abdominal pain this morning. Her blood pressure is up in her urine output is adequate. Her renal function is stable and she has gained 1.4 kg since yesterday. I think she can move to the floor today Exam (Progress Note) - Constitutional Vitals: Period Temp Pulse Resp BP Sys/Funk Pulse Ox Last 24 Hr 97.0 F-100.1 F 63-134 11-32 77-156/25-72 28-100 Exam: Objective a pleasant white female no acute distress. Her sensorium is intact and she has no evidence of encephalopathy this morning. She states she is very perplexed in how she got sick so fast. Patient was seen with Dr. Soriano yesterday and he is considering EGD. Cardiovascular: Heart rates regular and there is no murmurs or gallops. Respiratory: Lungs clear to auscultation bilaterally. Abdomen: Abdomen soft and nontender to palpation this morning. Extremities: There is no calf swelling or tenderness. Results - Labs CBC & BMP: 04/03/17 02:42 04/03/17 02:42 Lab Results: I have reviewed the past 24 hour labs Assessment and Plan (1) Osteonecrosis of right hip Status: Acute Assessment and plan: 04/02/2017: We will discuss patient with Dr. Wadsworth. Current Visit: Yes (2) Symptomatic anemia Status: Acute Assessment and plan: 04/02/2017: Transfusion will be begun. GI will be consulted. 04/03/2017: Hematocrit is 29% this morning. Patient is feeling much better. Current Visit: Yes (3) Addisons disease Status: Chronic Assessment and plan: 04/02/2017: Will add IV Solu-Cortef 04/03/2017: Patient's blood pressure is improved with transfusion. Patient's electrolytes have normalized. Current Visit: No (4) Altered mental status Status: Resolved Assessment and plan: 04/02/2017: Patient appears to have metabolic encephalopathy related to multiple factors. 04/03/2017: This has resolved. Current Visit: No Qualifiers: Altered mental status type: somnolence Qualified Code(s): R40.0 - Somnolence
[2017-04-03] MEDS: CALCIUM (CARBONATE)/VITAMIN D 600 MG-400 UNIT TABLET PO SCH (08:47)
[2017-04-03] MEDS: BACLOFEN 10 MG TABLET PO SCH ×2 (08:47→20:50)
[2017-04-03] MEDS: POTASSIUM CHLORIDE 20 MEQ TABLET PO SCH ×2 (08:47→20:50)
[2017-04-03] MEDS: PANTOPRAZOLE 40 MG VIAL IV SCH ×2 (08:47→21:44)
[2017-04-03] MEDS: FLUDROCORTISONE 0.1 MG TABLET PO SCH ×2 (08:47→20:50)
[2017-04-03 08:58] LABS: Hematocrit 27.9 VOL% (35.7-47.0); Hemoglobin 9.1 GM/DL (12.0-16.0)
[2017-04-03] MEDS ORDERED: PANTOPRAZOLE 40 MG TABLET PO SCH (09:00)
[2017-04-03] MEDS: LEVOFLOXACIN INJ 750 MG in PREMIX 1 EACH IV SCH (11:48)
[2017-04-03] MEDS ORDERED: PROPOFOL 200 MG/20 ML VIAL IV ONE (13:08)
[2017-04-03] MEDS ORDERED: LIDOCAINE 1% 5 ML VIAL ONE (13:08)
--- NOTE | 2017-04-03 13:17 | History and Physical Update ---
History and Physical Update - History and Physical H&P was reviewed, the patient examined and there: are no changes in the patients condition since last H&P was completed. - Physical Exam Mental Status: alert and oriented Heart: regular rate and rhythm Lung: clear to auscultation Abdomen: within normal limits Vitals: within normal limits
--- NOTE | 2017-04-03 13:21 | Anesthesia Post-Op ---
Anesthesia Post OP - Post Ansesthetic Evaluation Patient seen in post op: Yes Resp: within normal limits CV: within normal limits Mental: within normal limits Temp: within normal limits [id number]: within normal limits Nausea and Vomiting: within normal limits Pain: within normal limits
--- NOTE | 2017-04-03 13:22 | Operative Note ---
Date of procedure: 04/03/17 Pre-op diagnosis: GI bleed, symptomatic anemia Procedure: Procedure: Esophagogastroduodenoscopy Brief clinical abstract: 71-year-old female was admitted with symptomatic weakness and found to be anemic with hemoglobin 5.8. She has been transfused. She has noted no gross GI bleeding but had documented occult blood in her stool. Indication for procedure: Occult GI bleeding, symptomatic anemia Endoscopic findings:[After informed consent was obtained, the patient was placed in the left lateral decubitus position. The gastroscope was inserted in the upper esophagus under direct vision with no resistance encountered. Esophageal mucosa appeared normal down to the distal esophagus. There were 3 longitudinal erosions around 1 cm in length extending to the squamocolumnar junction. These occupied less than 10% of the luminal circumference. Just distal to this was a small hiatal hernia. The endoscope was advanced in the stomach which was carefully examined including retroflexed view of the cardia and fundus. No blood was noted in the stomach. There was a fairly large amount of retained food material in the stomach which limited visibility. Patient has had partial gastrectomy with probable antrectomy with Billroth I anatomy. There was a small approximately 8 mm ulcer in the gastric outlet with no visible vessel. A photo was taken of this. No other lesions were seen in the stomach but again retained food limited our exam. The duodenal bulb, second and third portion of the duodenum appeared normal. The endoscope was withdrawn and patient appeared to tolerate the procedure well. 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 #2 LA classification grade B erosive esophagitis secondary to GERD #3 small hiatal hernia #4 retained food material in stomach-suggests possible gastroparesis/gastric motility disorder #5 previous partial gastrectomy with Billroth I anatomy Recommendations: Continue PPI therapy twice daily for now and follow hemoglobin. I will want to try to find her old operative reports regarding her previous colon resections. She has had previous rectosigmoid colon cancer resected and also another colon resection by history but I am not sure how much residual colon is remaining after this. Anesthesia: MAC Surgeon / Physician: James Soriano Estimated blood loss: none Specimens: none sent Condition: stable Disposition: post procedure unit Results - Labs CBC & BMP: 04/03/17 08:41 04/03/17 02:42 Discharge Plan - Discharge Medications No Action Pantoprazole Tab [Protonix Tab] 40 mg PO BID Baclofen 10 mg PO BID PRN PRN Reason: Pain traMADol TAB [Ultram] 50 mg PO Q6H PRN PRN Reason: Pain Potassium Chloride [K-Tab ER] 20 meq PO BID Nitroglycerin Sl Tab [Nitrostat] 0.4 mg SL Q5M PRN PRN Reason: Chest Pain Hydrocortisone [Hydrocortisone Tab] 10 mg PO BID Calcium Carbonate/Vitamin D3 [Calcium 600-Vit D3 400 Tablet] 1 each PO DAILY Donepezil [Aricept] 5 mg PO BEDTIME Ondansetron HCl 8 mg PO BID PRN PRN Reason: Nausea Hydrocodone/Acetaminophen [Hydrocodon-Acetaminoph 7.5-325] 1 each PO Q6H PRN PRN Reason: Pain Fludrocortisone [Florinef] 0.2 mg PO BID - Follow Up or Referral - Forms/Instructions
[2017-04-03] MEDS: DONEPEZIL 5 MG TABLET PO SCH (20:50)
[2017-04-04] MEDS: HYDROCORTISONE 100 MG VIAL IV SCH ×3 (00:11→20:54)
[2017-04-04] MEDS: SODIUM CHLORIDE 0.9% 1,000 ML IV SCH ×3 (02:30→20:10)
--- NOTE | 2017-04-04 07:41 | Family Practice Progress Note ---
Family Practice - PN: Subj Interval history: Patient states she had a good night and is feeling much better. She tolerated her supper last night. She had a pyloric channel ulcer and esophagitis on her EGD. Her hematocrit this morning is 27%. She is not seeing any blood in her stool. She has blood cultures that were positive for gram-negative rods and gram-positive cocci. ID and sensitivity is yet pending. She certainly does not appear to be septic at this time. She still having some right hip pain. Exam (Progress Note) - Constitutional Vitals: Period Temp Pulse Resp BP Sys/Funk Pulse Ox Last 24 Hr 97.0 F-98.2 F 57-76 10-22 96-142/51-78 95-100 Exam: Objective a pleasant white female no acute distress. Patient's able to give good history and her sensorium is intact. Cardiovascular: Heart rates regular and there is no murmurs or gallops. Respiratory: Lungs clear to auscultation bilaterally. Abdomen: Abdomen soft and nontender to palpation this morning. Extremities: There is no calf swelling or tenderness. Results - Labs CBC & BMP: 04/03/17 08:41 04/03/17 02:42 Lab Results: I have reviewed the past 24 hour labs Assessment and Plan (1) Osteonecrosis of right hip Status: Acute Assessment and plan: 04/02/2017: We will discuss patient with Dr. Wadsworth. 04/04/2017: Dr. Wadsworth's been consulted Current Visit: Yes (2) Symptomatic anemia Status: Acute Assessment and plan: 04/02/2017: Transfusion will be begun. GI will be consulted. 04/03/2017: Hematocrit is 29% this morning. Patient is feeling much better. 04/04/2017: Hematocrit is 27% this morning she is feeling much better. Patient has a pyloric channel ulcer Current Visit: Yes (3) Addisons disease Status: Chronic Assessment and plan: 04/02/2017: Will add IV Solu-Cortef 04/03/2017: Patient's blood pressure is improved with transfusion. Patient's electrolytes have normalized. Current Visit: No (4) Altered mental status Status: Resolved Assessment and plan: 04/02/2017: Patient appears to have metabolic encephalopathy related to multiple factors. 04/03/2017: This has resolved. Current Visit: No Qualifiers: Altered mental status type: somnolence Qualified Code(s): R40.0 - Somnolence (5) Bacteremia Status: Acute Assessment and plan: 04/04/2017: Patient has gram-negative rods and gram-positive cocci on 2 blood cultures. ID and sensitivities pending. Current Visit: Yes
--- NOTE | 2017-04-04 08:17 | Orthopedic Consult Note ---
History of Present Illness Chief complaint: Left hip pain History of present illness: Ms. Blake is a 71 year old female who is well known to me. She has been admitted for GI bleeding and Kegley's crisis. I have currently been treating her for pelvic ring insufficiency fractures. She has a history of a prior left hip hemiarthroplasty for avascular necrosis and subsequent acetabular wear. Today, she is complaining of left inguinal pain. She also has right pre- collapse avascular necrosis. This lesion has been stable since at least 2009. Exam shows mild to moderate discomfort with motion of her left hip. Very little discomfort with motion of her right hip. Skin, sensation murmurs pulses grossly intact. X-rays were reviewed which demonstrate interval healing of her sacral and right pubic rami insufficiency fractures. She has a pre-collapse osteonecrotic lesion involving the right femoral head. She has a left hip hemiarthroplasty with underlying acetabular wear. Impression: Stable right hip pre-collapse avascular necrosis. Healing pelvic ring insufficiency fractures. Left hip acetabular wear status post left hip hemiarthroplasty Plan: Continued to be weightbearing as tolerated bilateral lower extremities with walker protection. Follow-up at her scheduled visit. Home Medications Medication Instructions Recorded Confirmed Type Baclofen 10 mg PO BID PRN 03/19/15 04/02/17 History Pantoprazole Tab [Protonix Tab] 40 mg PO BID 03/19/15 04/02/17 History Potassium Chloride [K-Tab ER] 20 meq PO BID 01/13/16 04/02/17 History traMADol TAB [Ultram] 50 mg PO Q6H PRN 01/13/16 04/02/17 History Hydrocodone/Acetaminophen 1 each PO Q6H PRN 02/09/17 04/02/17 History [Hydrocodon-Acetaminoph 7.5-325] Calcium Carbonate/Vitamin D3 1 each PO DAILY 02/13/17 04/02/17 History [Calcium 600-Vit D3 400 Tablet] Fludrocortisone [Florinef] 0.2 mg PO BID 02/13/17 04/02/17 History Hydrocortisone [Hydrocortisone Tab] 10 mg PO BID 02/13/17 04/02/17 History Nitroglycerin Sl Tab [Nitrostat] 0.4 mg SL Q5M PRN 02/13/17 04/02/17 History Donepezil [Aricept] 5 mg PO BEDTIME 02/15/17 04/02/17 History Ondansetron HCl 8 mg PO BID PRN 03/21/17 04/02/17 History Allergies Allergy/AdvReac Type Severity Reaction Status Date / Time No Known Allergies Allergy Verified 04/02/17 09:32 12 point system: reviewed and no additional remarkable complaints except as stated Medical,Surgical,& Family Hx - Medical History Cardio: History of: Cardiac Dysrhythmia, CHF, [place] Psychological: History of: Anxiety Disorders, Depression Neurology: History of: Cerebrovascular Accident (2016), Dementia No history of: Seizures HEENT: History of: Ear Problem (HARD OF HEARING), Dental Problems (DENTURES ( FULL) UPPER AND LOWER) No history of: Eye Problem Endocrine: History of: Adrenal Disease (adrenal insufficiency; addisons disease) , Endocrine Problems (DAVID'S DISEASE, ADRENAL INSUFFCIENCY) Respiratory: History of: Bronchitis, Intubation, Pulmonary Embolism, Pneumonia No history of: Obstructive Sleep Apnea, Pulmonary Hypertension, Lung Cancer, Respiratory Problems Renal: History of: Renal Failure, Renal Problems (renal Calculi) Genitourinary: History of: Bladder Problem, Kidney Stones, Recurring Urinary Tract Infections No history of: Genitourinary Cancer Gastrointestinal: History of: Diverticulitis/ Diverticulosis, GERD, Gastrointestinal Bleed, Liver Problems (SPOT ON LIVER ONCE), Polyps, Gastrointestinal Cancer (colorectal cancer 2004), GI Problems (PATIENT DOESN'T HAVE COLON OR RECTUM) No history of: Bowel Obstruction, Esophageal Varices, Hemorrhoids, Hematochezia, Hepatitis, Pancreatitis, Ulcerative Colitis Musculoskeletal: History of: Back/Neck Problems, Osteoporosis, Musculoskeletal Problems No history of: Amputation Hematology: History of: Anemia, Blood Transfusion Reaction (STAPH INFECTION FROM BLOOD INFUSION) Reproductive: History of: Abnormal Pap Smear, Ovarian Cysts Other: History of: Cancer (colo-rectal) No history of: Anesthesia Reactions - Surgical History Cardiac Surgeries: Patient Denies: Femoral-Popliteal Bypass Graft, Cardiac Catheterization, Cardiac Surgery, Carotid Endarterectomy, Internal Defibrillator, Vascular Access Devices Thoracic Surgeries: Patient denies;: Kidney (Renal Surgery), Lithotripsy, Nephrectomy, Organ Transplant, Lobectomy Neurologic Surgeries: Patient denies: Neurologic Surgery HEENT Surgeries: Surgical HX of: Eye Surgery (Cataract), Tonsilectomy & Adenoidectomy Patient denies: Carotid Endarterectomy, Thyroid Surgery Abdominal Surgeries: Surgical HX of: Abdominal Surgery, Appendectomy, Cholecystectomy, Colonoscopy, EGD, Hernia Repair Patient denies: Gastric Bypass Surgery, Splenectomy Reproductive Surgeries: Surgical HX of;: Gynecologic Surgery, Hysterectomy Patient denies;: Cystoscopy, Genitourinary Surgery Orthopedic Surgeries: Surgical HX of;: Orthopedic Surgery (BROKEN LEFT WRIST), Total Hip Replacement (RIGHT HIP, Left hip replacement x 2) Patient denies;: Implanted Devices, Spinal Surgery, Total Knee Replacement - Family History Family History: Reports;: Family Cancer (Mother, Aunt), Family Diabetes ( Daughter, Grandmother), Family Heart Disease (Grandfather), Family Stroke ( Mother, Grandmother, Daughter) Denies;: Family Anesthesia Reaction, Family Hypertension - Social History Smoking Status: Never smoker Frequency of Alcohol Use: None Type of Drug Use: None Exam - Constitutional Vitals: Period Temp Pulse Resp BP Sys/Funk Pulse Ox Last 24 Hr 97.0 F-98.2 F 57-76 10-22 96-142/51-78 95-100 Results - Labs CBC & BMP: 04/03/17 08:41 04/03/17 02:42
--- NOTE | 2017-04-04 09:48 | Gastrointestinal Progress Note ---
Assessment and Plan (1) Anemia Status: Acute Assessment and plan: 04/04-EGD findings noted as below. H&H holding at 05/30. No abdominal pain. No overt bleeding. Tolerating diet well. Plan an addendum followed by Dr. Soriano. 04/02-Recent onset of weakness/fatigue with findings of HH 01/18 with vague reports of some blood in ileostomy (not a new finding). Hx of blood transfusions with total of 5u PRBC over the last year prior to this admission. Last known endoscopy in 2009 to remove irrigation tube from ostomy and EGD in 2010. To be transfused 2 units PRBC today. Further plan and addendum to follow by Dr Soriano. Current Visit: No Gastroenterology - PN: Subj Interval history: CC: Anemia Patient is seen awake and alert with family at bedside. States she rested well overnight. EGD on yesterday showed pyloric channel ulcer which was the possible source of the bleeding as well as erosive esophagitis, small hiatal hernia, and retained food in her stomach. She states that she is tolerating her diet well at this time and her appetite is improving. H&H is holding at without overt bleeding. Denies any blood in her ostomy bag at this time. Abdomen is soft, nontender. She is noted to have a UTI with culture pending showing gram-negative rods. ROS: Denies shortness of breath or chest pain Exam (Progress Note) - Constitutional Vitals: Period Temp Pulse Resp BP Sys/Funk Pulse Ox Last 24 Hr 97.0 F-98.2 F 57-76 10-22 96-142/51-78 95-100 General appearance: normal weight, no acute distress - Head Head exam: Present: normal inspection, normocephalic - Eye Eye exam: Present: other (Lids and conjunctivae are unremarkable). Absent: scleral icterus - ENT ENT exam: Present: normal exam, normal oropharynx - Neck Neck exam: Present: normal inspection - Respiratory Respiratory exam: Present: clear to auscultation bilaterally. Absent: rales, rhonchi, wheezes - Cardiovascular Cardiovascular exam: Present: regular rate and rhythm. Absent: diastolic murmur , JVD, systolic murmur - GI/Abdominal GI/Abdominal exam: Present: normal bowel sounds, soft. Absent: ascites, distended, mass, organomegaly, tenderness - Extremities Exam Extremities exam: Present: normal inspection, full ROM - Back Exam Back exam: Present: normal inspection - Neurological Exam Neurological exam: Present: alert, oriented X3 - Psychiatric Psychiatric exam: Present: normal affect, normal mood - Skin Skin exam: Present: normal color, warm, dry Results - Labs CBC & BMP: 04/03/17 08:41 04/03/17 02:42 Lab Results: I have reviewed the past 24 hour labs
[2017-04-04] MEDS: BACLOFEN 10 MG TABLET PO SCH ×2 (10:29→20:55)
[2017-04-04] MEDS: CALCIUM (CARBONATE)/VITAMIN D 600 MG-400 UNIT TABLET PO SCH (10:29)
[2017-04-04] MEDS: FLUDROCORTISONE 0.1 MG TABLET PO SCH ×2 (10:29→20:55)
[2017-04-04] MEDS: PANTOPRAZOLE 40 MG VIAL IV SCH ×2 (10:30→20:55)
[2017-04-04] MEDS: POTASSIUM CHLORIDE 20 MEQ TABLET PO SCH ×2 (10:30→20:55)
[2017-04-04] MEDS: LEVOFLOXACIN INJ 750 MG in PREMIX 1 EACH IV SCH (12:01)
[2017-04-04] MEDS: DONEPEZIL 5 MG TABLET PO SCH (20:55)
[2017-04-04] MEDS: ONDANSETRON 4 MG/2 ML VIAL IV PRN (21:05)
[2017-04-05] MEDS: ONDANSETRON 4 MG/2 ML VIAL IV PRN (01:11)
[2017-04-05] MEDS: SODIUM CHLORIDE 0.9% 1,000 ML IV SCH (04:24)
--- NOTE | 2017-04-05 07:24 | Family Practice Progress Note ---
Family Practice - PN: Subj Interval history: Patient says she is feeling some better this morning and she has not been having any fever or chills. Both her blood and urine cultures are positive for Klebsiella pneumoniae sensitive to the Levaquin. She is not having any visible bleeding. States she did have little abdominal pain and nausea last night and her appetite is still diminished. After we had continue her IV fluids until her intake is improved. I think I will reduce her hydrocortisone to 50 mg every 12 Exam (Progress Note) - Constitutional Vitals: Period Temp Pulse Resp BP Sys/Funk Pulse Ox Last 24 Hr 96.2 F-98.7 F 59-81 16-20 92-122/40-64 94-99 Exam: Objective a pleasant white female no acute distress. Patient's able to give good history and her sensorium is intact. Note that her face is a little puffy this morning. Cardiovascular: Heart rates regular and there is no murmurs or gallops. Respiratory: Lungs clear to auscultation bilaterally. Abdomen: Abdomen soft and nontender to palpation this morning. Extremities: There is no calf swelling or tenderness. Results - Labs CBC & BMP: 04/03/17 08:41 04/03/17 02:42 Lab Results: I have reviewed the past 24 hour labs Assessment and Plan (1) Osteonecrosis of right hip Status: Chronic Assessment and plan: 04/02/2017: We will discuss patient with Dr. Wadsworth. 04/04/2017: Dr. Wadsworth's been consulted Current Visit: Yes (2) Symptomatic anemia Status: Acute Assessment and plan: 04/02/2017: Transfusion will be begun. GI will be consulted. 04/03/2017: Hematocrit is 29% this morning. Patient is feeling much better. 04/04/2017: Hematocrit is 27% this morning she is feeling much better. Patient has a pyloric channel ulcer 04/05/2017: Will repeat her CBC today Current Visit: Yes (3) Addisons disease Status: Chronic Assessment and plan: 04/02/2017: Will add IV Solu-Cortef 04/03/2017: Patient's blood pressure is improved with transfusion. Patient's electrolytes have normalized. 04/05/2017: We will reduce her hydrocortisone to 50 every 12 Current Visit: No (4) Altered mental status Status: Resolved Assessment and plan: 04/02/2017: Patient appears to have metabolic encephalopathy related to multiple factors. 04/03/2017: This has resolved. Current Visit: No Qualifiers: Altered mental status type: somnolence Qualified Code(s): R40.0 - Somnolence (5) Bacteremia Status: Acute Assessment and plan: 04/04/2017: Patient has gram-negative rods and gram-positive cocci on 2 blood cultures. ID and sensitivities pending. 04/05/2017: Patient has both blood and urine cultures positive for Klebsiella pneumoniae which is sensitive to her present Levaquin. Current Visit: Yes
[2017-04-05 07:39] LABS: Basophils % 0.1 % (0.0-0.8); Eosinophils % 0.1 % (0.00-10.9); Hematocrit 28.7 VOL% (35.7-47.0); Hemoglobin 9.2 GM/DL (12.0-16.0); Immature Granulocytes % 1.5 %; Immature Granulocytes Absolute 0.17 #; Lymphocytes # 1.2 10*3/uL (1.4-4.0); Lymphocytes % 10.3 % (21.3-54.2); Mean Corpuscular HGB Conc 32.1 GM/DL (32-36); Mean Corpuscular Hemoglobin 25 PG (27-34); Mean Corpuscular Volume 78.8 FL (87-102); Mean Platelet Volume 10.1 FL (9.6-12.0); Monocytes # 0.7 10*3/uL (0.11-0.8); Monocytes % 6.4 % (1.7-12.7); NRBC # 0.02 10*3/uL; Neutrophils # 9.3 10*3/uL (1.4-7.4); Neutrophils % 81.6 % (38.7-73.9); Platelet Count 191 T/CUMM (130-400); Red Blood Count 3.64 MC/CUMM (3.8-5.5); Red Cell Distribution Width 16.2 % (9.3-17.3); White Blood Count 11.4 T/CUMM (4-12)
[2017-04-05 08:06] LABS: Calcium 7.8 MG/DL (8.5-10.1); Osmolality,Calculated 284.8 MOS/KG (273-304)
[2017-04-05 08:10] LABS: Potassium 2.3 MMOL/L (3.5-5.1)
[2017-04-05 08:42] LABS: Band Neutrophils 2 % (0-10); Hypochromasia 1+; Lymphocytes 12 % (20-55); Microcytosis 1+; Ovalocytes Slight; Platelet Estimate Adequate; Segmented Neutrophils 80 % (50-85); Total Cells Counted 100
[2017-04-05] MEDS: SODIUM CHLOR 0.9% KCL 40 MEQ 40 MEQ/1,000 ML BAG IV SCH ×2 (08:47→16:46)
[2017-04-05] MEDS: CALCIUM (CARBONATE)/VITAMIN D 600 MG-400 UNIT TABLET PO SCH (08:48)
[2017-04-05] MEDS: POTASSIUM CHLORIDE 20 MEQ TABLET PO SCH ×3 (08:48→20:50)
[2017-04-05] MEDS: BACLOFEN 10 MG TABLET PO SCH ×2 (08:48→20:50)
[2017-04-05] MEDS: FLUDROCORTISONE 0.1 MG TABLET PO SCH ×2 (08:48→20:50)
[2017-04-05] MEDS: HYDROCORTISONE 100 MG VIAL IV SCH ×2 (08:48→20:51)
[2017-04-05] MEDS: LEVOFLOXACIN INJ 750 MG in PREMIX 1 EACH IV SCH (08:49)
[2017-04-05] MEDS: PANTOPRAZOLE 40 MG VIAL IV SCH ×2 (08:49→20:50)
--- NOTE | 2017-04-05 09:39 | Gastrointestinal Progress Note ---
Assessment and Plan (1) Anemia Status: Acute Assessment and plan: 04/05-H&H is holding at this time. Hypokalemia noted. Records are pending currently for review regarding prior surgeries. Plan an addendum to followed by Dr. Soriano. 04/04-EGD findings noted as below. H&H holding at 05/30. No abdominal pain. No overt bleeding. Tolerating diet well. Plan an addendum followed by Dr. Soriano. 04/02-Recent onset of weakness/fatigue with findings of HH 01/18 with vague reports of some blood in ileostomy (not a new finding). Hx of blood transfusions with total of 5u PRBC over the last year prior to this admission. Last known endoscopy in 2009 to remove irrigation tube from ostomy and EGD in 2010. To be transfused 2 units PRBC today. Further plan and addendum to follow by Dr Soriano. Current Visit: No Gastroenterology - PN: Subj Interval history: CC: Anemia Patient is seen, awake and alert sitting up in bed. States that she did not feel well last night and had an episode of nausea vomiting however this resolved this morning. States her appetite is fairly poor at this time but she is feeling a little bit better. Abdomen is soft, nontender. H&H is holding at 05/31. She is noted to be severely hypokalemic this morning at 2.3. Noted where her p.o. potassium has been ordered by Dr. Abernathy. Records are pending this morning regarding her prior surgeries. ROS: Denies shortness of breath or chest pain Exam (Progress Note) - Constitutional Vitals: Period Temp Pulse Resp BP Sys/Funk Pulse Ox Last 24 Hr 96.2 F-98.7 F 59-81 16-20 92-122/40-57 94-99 - Other Additional findings: General appearance: normal weight, no acute distress - Head Head exam: Present: normal inspection, normocephalic - Eye Eye exam: Present: other (Lids and conjunctivae are unremarkable). Absent: scleral icterus - ENT ENT exam: Present: normal exam, normal oropharynx - Neck Neck exam: Present: normal inspection - Respiratory Respiratory exam: Present: clear to auscultation bilaterally. Absent: rales, rhonchi, wheezes - Cardiovascular Cardiovascular exam: Present: regular rate and rhythm. Absent: diastolic murmur , JVD, systolic murmur - GI/Abdominal GI/Abdominal exam: Present: normal bowel sounds, soft. Absent: ascites, distended, mass, organomegaly, tenderness - Extremities Exam Extremities exam: Present: normal inspection, full ROM - Back Exam Back exam: Present: normal inspection - Neurological Exam Neurological exam: Present: alert, oriented X3 - Psychiatric Psychiatric exam: Present: normal affect, normal mood - Skin Skin exam: Present: normal color, warm, dry Results - Labs CBC & BMP: 04/05/17 07:36 04/05/17 07:36 Lab Results: I have reviewed the past 24 hour labs
[2017-04-05] MEDS: DONEPEZIL 5 MG TABLET PO SCH (20:51)
--- NOTE | 2017-04-06 05:45 | Family Practice Progress Note ---
Family Practice - PN: Subj Interval history: Patient certainly improving she feels much better. Patient states she is not having any abdominal pain and she has not had any nausea or vomiting. She would like get rid of her IV fluids as she is gotten a bit puffy. I told her I wanted to keep her in for 2 more days of IV antibiotics and she had Klebsiella sepsis. She understands this. I will go ahead and stop her Solu-Cortef and put her back on her oral hydrocortisone. Patient is presently receiving potassium supplementation. Exam (Progress Note) - Constitutional Vitals: Period Temp Pulse Resp BP Sys/Funk Pulse Ox Last 24 Hr 96.2 F-98.6 F 60-71 14-20 92-125/49-57 93-97 Exam: Objective a pleasant white female no acute distress. Patient's able to give good history and her sensorium is intact. Cardiovascular: Heart rates regular and there is no murmurs or gallops. Respiratory: Lungs clear to auscultation bilaterally. Abdomen: Abdomen soft and nontender to palpation this morning. Extremities: There is no calf swelling or tenderness. Results - Labs CBC & BMP: 04/05/17 07:36 04/05/17 07:36 Lab Results: I have reviewed the past 24 hour labs Assessment and Plan (1) Osteonecrosis of right hip Status: Chronic Assessment and plan: 04/02/2017: We will discuss patient with Dr. Wadsworth. 04/04/2017: Dr. Wadsworth's been consulted 04/06/2017: Dr. Wadsworth will follow her as an outpatient. Current Visit: Yes (2) Symptomatic anemia Status: Suspected Assessment and plan: 04/02/2017: Transfusion will be begun. GI will be consulted. 04/03/2017: Hematocrit is 29% this morning. Patient is feeling much better. 04/04/2017: Hematocrit is 27% this morning she is feeling much better. Patient has a pyloric channel ulcer 04/05/2017: Will repeat her CBC today Current Visit: Yes (3) Addisons disease Status: Chronic Assessment and plan: 04/02/2017: Will add IV Solu-Cortef 04/03/2017: Patient's blood pressure is improved with transfusion. Patient's electrolytes have normalized. 04/05/2017: We will reduce her hydrocortisone to 50 every 12 04/06/2017: We will put her back on orals hydrocortisone Current Visit: No (4) Altered mental status Status: Resolved Assessment and plan: 04/02/2017: Patient appears to have metabolic encephalopathy related to multiple factors. 04/03/2017: This has resolved. Current Visit: No Qualifiers: Altered mental status type: somnolence Qualified Code(s): R40.0 - Somnolence (5) Bacteremia Status: Acute Assessment and plan: 04/04/2017: Patient has gram-negative rods and gram-positive cocci on 2 blood cultures. ID and sensitivities pending. 04/05/2017: Patient has both blood and urine cultures positive for Klebsiella pneumoniae which is sensitive to her present Levaquin. 04/06/2017: Patient is presently on day 5 of Levaquin. We will continue for 2 more days. Current Visit: Yes
[2017-04-06] MEDS: SODIUM CHLOR 0.9% KCL 40 MEQ 40 MEQ/1,000 ML BAG IV SCH (06:52)
[2017-04-06 07:02] LABS: Calcium 7.9 MG/DL (8.5-10.1); Osmolality,Calculated 287.7 MOS/KG (273-304); Potassium 3.1 MMOL/L (3.5-5.1)
[2017-04-06] MEDS: BACLOFEN 10 MG TABLET PO SCH ×2 (08:05→20:32)
[2017-04-06] MEDS: PANTOPRAZOLE 40 MG VIAL IV SCH ×2 (08:05→20:34)
[2017-04-06] MEDS: FLUDROCORTISONE 0.1 MG TABLET PO SCH ×2 (08:05→20:32)
[2017-04-06] MEDS: POTASSIUM CHLORIDE 20 MEQ TABLET PO SCH ×3 (08:06→20:33)
[2017-04-06] MEDS: HYDROCORTISONE 10 MG TABLET PO SCH ×2 (08:06→20:33)
[2017-04-06] MEDS: LEVOFLOXACIN INJ 750 MG in PREMIX 1 EACH IV SCH (08:06)
[2017-04-06] MEDS: CALCIUM (CARBONATE)/VITAMIN D 600 MG-400 UNIT TABLET PO SCH (08:06)
[2017-04-06] MEDS: DONEPEZIL 5 MG TABLET PO SCH (21:00)
[2017-04-07 04:09] LABS: Basophils % 0.1 % (0.0-0.8); Eosinophils % 0.3 % (0.00-10.9); Hematocrit 30.5 VOL% (35.7-47.0); Hemoglobin 9.7 GM/DL (12.0-16.0); Immature Granulocytes % 2.9 %; Lymphocytes # 0.8 10*3/uL (1.4-4.0); Lymphocytes % 7.8 % (21.3-54.2); Mean Corpuscular HGB Conc 31.8 GM/DL (32-36); Mean Corpuscular Hemoglobin 25 PG (27-34); Mean Corpuscular Volume 77.2 FL (87-102); Mean Platelet Volume 10.3 FL (9.6-12.0); Monocytes % 9.4 % (1.7-12.7); Neutrophils # 8.4 10*3/uL (1.4-7.4); Neutrophils % 79.5 % (38.7-73.9); Platelet Count 183 T/CUMM (130-400); Red Blood Count 3.95 MC/CUMM (3.8-5.5); Red Cell Distribution Width 16.3 % (9.3-17.3); White Blood Count 10.5 T/CUMM (4-12)
[2017-04-07 04:38] LABS: Osmolality,Calculated 282.8 MOS/KG (273-304)
[2017-04-07 04:41] LABS: Potassium 2.3 MMOL/L (3.5-5.1)
[2017-04-07] MEDS ORDERED: POTASSIUM CHLORIDE 20 MEQ TABLET PO ONE (05:31)
[2017-04-07] MEDS: BACLOFEN 10 MG TABLET PO SCH (08:15)
[2017-04-07] MEDS: POTASSIUM CHLORIDE 20 MEQ TABLET PO SCH ×3 (08:15→20:51)
[2017-04-07] MEDS: PANTOPRAZOLE 40 MG VIAL IV SCH ×2 (08:15→20:51)
[2017-04-07] MEDS: FLUDROCORTISONE 0.1 MG TABLET PO SCH ×2 (08:15→20:52)
[2017-04-07] MEDS: CALCIUM (CARBONATE)/VITAMIN D 600 MG-400 UNIT TABLET PO SCH (08:16)
[2017-04-07] MEDS: LEVOFLOXACIN INJ 750 MG in PREMIX 1 EACH IV SCH (08:16)
[2017-04-07] MEDS: HYDROCORTISONE 10 MG TABLET PO SCH ×2 (08:16→20:52)
--- NOTE | 2017-04-07 09:05 | Orthopedic Progress Note ---
Orthopedics - Subjective Interval history: This lady has multiple medical issues and is currently hospitalized for GI bleeding and addisonian crisis. Orthopedics is consulted on her because of osteonecrosis of the hips. She also has a past history of pelvic ring insufficiency fractures managed by Dr. Wadsworth. She is stable alert in mild hip discomfort which is chronic Recommendations: No change in orthopedic orders from Dr. Wadsworth Exam - Constitutional Vitals: Period Temp Pulse Resp BP Sys/Funk Pulse Ox Last 24 Hr 97.3 F-98.6 F 69-93 15-20 95-112/53-56 91-97 Results - Labs CBC & BMP: 04/07/17 03:16 04/07/17 03:16
--- NOTE | 2017-04-07 13:41 | Internal Med Progress Note ---
Assessment and Plan (1) Bacteremia Problem details: Klebsiella pneumoniae Status: Acute Current Visit: Yes (2) Osteonecrosis of right hip Status: Chronic Current Visit: Yes (3) Nausea and vomiting Status: Resolved Current Visit: Yes (4) Anemia of chronic disease Status: Chronic Current Visit: Yes (5) Hypokalemia Status: Acute Current Visit: Yes Internal Medicine - PN: Subj Interval history: This is a patient of Dr. 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 Wadsworth outpatient, who had presented to ER with nausea , vomiting that have since resolved. She was also found to have UTI with urosepsis (Klebsiella) sensitive to Levaquin. She is feeling better and would like to go home. However, she has been requiring potassium replacement for significant hypokalemia. Not comfortable sending her home with this potassium level. Also, home health to be involved for outpatient IV antibiotic for bacteremia. Exam (Progress Note) - Constitutional Vitals: Period Temp Pulse Resp BP Sys/Funk Pulse Ox Last 24 Hr 97.3 F-98.6 F 69-95 15-20 92-112/53-56 91-96 General appearance: no acute distress - Head Head exam: Present: normocephalic - Eye Eye exam: Present: EOMI - Respiratory Respiratory exam: Present: clear to auscultation bilaterally. Absent: rhonchi, wheezes - Cardiovascular Cardiovascular exam: Present: regular rate and rhythm - GI/Abdominal GI/Abdominal exam: Present: normal bowel sounds, soft, other (ileostomy bag in place). Absent: tenderness - Extremities Exam Extremities exam: Absent: edema - Neurological Exam Neurological exam: Present: alert, oriented X3 - Psychiatric Psychiatric exam: Present: normal mood - Skin Skin exam: Present: warm, dry Results - Labs CBC & BMP: 04/07/17 03:16 04/07/17 12:30
[2017-04-07] MEDS: ALBUTEROL/IPRATROPIUM 3 ML NEB RESP TX SCH ×2 (19:00→23:58)
[2017-04-07] MEDS: DONEPEZIL 5 MG TABLET PO SCH (20:52)
[2017-04-08 04:51] LABS: Basophils % 0.2 % (0.0-0.8); Eosinophils % 0.2 % (0.00-10.9); Hematocrit 30.7 VOL% (35.7-47.0); Hemoglobin 9.7 GM/DL (12.0-16.0); Immature Granulocytes % 4.4 %; Immature Granulocytes Absolute 0.55 #; Lymphocytes # 0.9 10*3/uL (1.4-4.0); Lymphocytes % 7.3 % (21.3-54.2); Mean Corpuscular HGB Conc 31.6 GM/DL (32-36); Mean Corpuscular Hemoglobin 25 PG (27-34); Mean Corpuscular Volume 79.1 FL (87-102); Mean Platelet Volume 10.2 FL (9.6-12.0); Monocytes # 0.9 10*3/uL (0.11-0.8); Monocytes % 7.1 % (1.7-12.7); Neutrophils # 10.1 10*3/uL (1.4-7.4); Neutrophils % 80.8 % (38.7-73.9); Platelet Count 185 T/CUMM (130-400); Red Blood Count 3.88 MC/CUMM (3.8-5.5); Red Cell Distribution Width 16.7 % (9.3-17.3); White Blood Count 12.5 T/CUMM (4-12)
[2017-04-08 05:22] LABS: Albumin 1.9 G/DL (3.4-5.0); Bilirubin,Total 0.5 MG/DL (0.2-1.0); Calcium 8.4 MG/DL (8.5-10.1); Osmolality,Calculated 283.1 MOS/KG (273-304); Total Protein 4.6 G/DL (6.4-8.3)
[2017-04-08 05:54] LABS: Hypochromasia 1+; Lymphocytes 6 % (20-55); Metamyelocytes 2 %; Microcytosis 1+; Platelet Estimate Adequate; Segmented Neutrophils 82 % (50-85); Total Cells Counted 100
[2017-04-08] MEDS: ALBUTEROL/IPRATROPIUM 3 ML NEB RESP TX SCH ×2 (07:38→12:07)
[2017-04-08 08:38] LABS: Apearance,Urine CLEAR (Clear); Bacteria,Urine Occasional /HPF (Few); Bilirubin,Urine Negative (Negative); Blood, Urine Small mg/dL (Negative); Glucose,Urine (UA) 50 mg/dL (Negative); Ketones,Urine Negative (Negative); Mucus,Urine Occasional /LPF (Occasional); Nitrite,Urine Negative (Negative); Protein,Urine 30 MG/DL; RBC,Urine 29 /HPF (0-4); Squamous Epithelial Cell,Urine Occasional /HPF (0-10); Urine Color Yellow (Yellow); Urine Specific Gravity 1.019 (1.001-1.035); Urine Urobilinogen < 2.0 EU/DL (0.2-1.0); WBC,Urine 24 /HPF (0-6)
[2017-04-08] MEDS: CALCIUM (CARBONATE)/VITAMIN D 600 MG-400 UNIT TABLET PO SCH (10:28)
[2017-04-08] MEDS: POTASSIUM CHLORIDE 20 MEQ TABLET PO SCH ×2 (10:29→19:47)
[2017-04-08] MEDS: FLUDROCORTISONE 0.1 MG TABLET PO SCH (10:29)
[2017-04-08] MEDS: PANTOPRAZOLE 40 MG VIAL IV SCH (10:40)
[2017-04-08] MEDS: HYDROCORTISONE 10 MG TABLET PO SCH (10:48)
[2017-04-08] MEDS: LEVOFLOXACIN INJ 750 MG in PREMIX 1 EACH IV SCH (10:51)
[2017-04-08 13:02] VITALS: BP 89/48
--- NOTE | 2017-04-08 13:34 | Discharge Summary ---
Hospital Course - Hospital Course Hospital Course: This is a patient of Dr. 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 Wadsworth outpatient, who had presented to ER with nausea , vomiting that have since resolved. She was also found to have UTI with urosepsis (Klebsiella) sensitive to Levaquin. She is feeling better and would like to go home. However, she has been requiring potassium replacement for significant hypokalemia. She is doing better and will be discharged to home today. Home Health. She will have PO levaquin 500 mg daily for three weeks to cover bacteremia, and Dr. Kevin Abernathy will follow. Diagnosis - Discharge Diagnosis (1) Bacteremia Status: Acute (2) Osteonecrosis of right hip Status: Chronic (3) Nausea and vomiting Status: Resolved (4) Anemia of chronic disease Status: Chronic (5) Hypokalemia Status: Resolved Discharge Plan - Discharge Data Disposition: Home Health Service Condition at Discharge: Stable Discharge Diet: low fat, low cholesterol Activity: as per physical therapy, increase activity as tolerated Weight Bearing at Discharge: weight bear as tolerated (hip pain) - Discharge Medications New Hydrocortisone Tab [Cortef Tab] 20 mg PO BID #60 tablet Levofloxacin Tab [Levaquin Tab] 500 mg PO DAILY #20 tablet Albuterol Inhaler [Proventil Inhaler] 2 puff INH Q4H PRN #1 inhaler PRN Reason: Shortness Of Breath/Wheezing Potassium Chloride Cap/Tab [K Dur] 40 meq PO BID W/MEALS #60 tablet Continue Pantoprazole Tab [Protonix Tab] 40 mg PO BID Baclofen 10 mg PO BID PRN PRN Reason: Pain traMADol TAB [Ultram] 50 mg PO Q6H PRN PRN Reason: Pain Nitroglycerin Sl Tab [Nitrostat] 0.4 mg SL Q5M PRN PRN Reason: Chest Pain Calcium Carbonate/Vitamin D3 [Calcium 600-Vit D3 400 Tablet] 1 each PO DAILY Donepezil [Aricept] 5 mg PO BEDTIME Ondansetron HCl 8 mg PO BID PRN PRN Reason: Nausea Hydrocodone/Acetaminophen [Hydrocodon-Acetaminoph 7.5-325] 1 each PO Q6H PRN PRN Reason: Pain Fludrocortisone [Florinef] 0.2 mg PO BID Discontinued Potassium Chloride [K-Tab ER] 20 meq PO BID Hydrocortisone [Hydrocortisone Tab] 10 mg PO BID - Follow Up or Referral Follow Up: Kevin Abernathy MD [Physician] - Baudilio Wadsworth Jr., MD [Physician] - - Forms/Instructions Additional Discharge Instructions: Follow up with Dr. Isabella Abernathy in clinic within 1 week. Blood culture results from yesterday to Dr. Isabella Abernathy. Redraw blood cultures two sets in 3 weeks at [facility]. Please make sure the discharge meds that were escribed went through to pharmacy at [facility]. She is to take PO levaquin 500 mg daily for 20 days (escribed). Home Health for PT/ OT and nursing care. She has an appointment with Dr. Wadsworth in clinic soon. Exam - Constitutional Vitals: Period Temp Pulse Resp BP Sys/Funk Pulse Ox Last 24 Hr 96.8 F-98.2 F 75-101 14-20 89-101/48-58 94-99 General appearance: no acute distress - Respiratory Respiratory exam: Present: clear to auscultation bilaterally - Cardiovascular Cardiovascular exam: Present: regular rate and rhythm - GI/Abdominal GI/Abdominal exam: Present: normal bowel sounds, soft, other (ileostomy bag in place). Absent: tenderness - Extremities Exam Extremities exam: Absent: edema - Neurological Exam Neurological exam: Present: alert, oriented X3 - Psychiatric Psychiatric exam: Present: normal mood - Skin Skin exam: Present: warm, dry Discharge Results Procedures and tests throughout hospitalization: Pending Orders 04/02/17 20:40 Occult Blood, Stool Stat 04/08/17 Urine Culture Routine 04/08/17 04:33 Blood Culture Routine Labs on day of discharge: Labs from last 24 hours 04/08/17 04/08/17 04/08/17 07:38 04:33 04:33 WBC 12.5 H RBC 3.88 Hgb 9.7 L Hct 30.7 L MCV 79.1 L MCH 25 L MCHC 31.6 L RDW 16.7 Plt Count 185 MPV 10.2 Neut % (Auto) 80.8 H Lymph % (Auto) 7.[address] [place] % (Auto) 7.1 Eos % (Auto) 0.2 Baso % (Auto) 0.2 Neut # (Auto) 10.1 H Lymph # (Auto) 0.[address] # (Auto) 0.9 H Eos # (Auto) 0.0 Baso # (Auto) 0.0 Total Counted 100 Immature Gran % 4.4 Nucleated RBC % 0.0 Immature Gran # 0.55 Segmented Neutrophils 82 Lymphocytes 6 L Monocytes 10 Metamyelocytes 2 Nucleated RBCs # 0.00 Platelet Estimate Adequate Immature Plt Fraction 0.0 Hypochromasia 1+ Microcytosis 1+ Sodium 142 Potassium 4.0 Chloride 108 H Carbon Dioxide 28 Anion Gap 10.0 BUN 13 Creatinine 0.70 GFR Calculation 86 BUN/Creatinine Ratio 18.00 Glucose 108 H Calculated Osmolality 283.1 Calcium 8.4 L Magnesium 2.0 Total Bilirubin 0.50 AST 14 ALT 12 L Alkaline Phosphatase 99 Total Protein 4.6 L Albumin 1.9 L Globulin 2.7 Albumin/Globulin Ratio 0.7 L Urine Color Yellow Urine Appearance Clear Urine pH 5.0 Ur Specific [place] 1.019 Urine Protein 30 Urine Glucose (UA) 50 Urine Ketones Negative Urine Blood Small Urine Nitrate Negative Urine Bilirubin Negative Urine Urobilinogen < 2.0 H Urine Leukocytes Negative Urine RBC 29 Urine WBC 24 Ur Squamous Epith Cells Occasional Urine Bacteria Occasional Urine Mucus Occasional Ur Culture Indicated? Results to follow DS: Provider Date of admission: 04/02/17 11:36 Primary care physician: . No PCP Attending physician on admission: Kevin Abernathy MD Consults: 04/02/17 13:47 Consult to Physician [CONS] Routine Comment: Consulting Provider: James Soriano Consulting Provider Notified: Yes Consult to Specialist Group: Gastroenterology Person Notified: REVONDA Date Notified: 04/02/17 Time Notified: 14:25 04/02/17 14:12 Consult to Dietitian [CONS] Routine Reason for Dietitian: Other Consult Comment: computer generated 04/02/17 14:17 Consult to Pastoral Services [CONS] Routine Comment: Pastoral Screen: Request Case Supervisor Visit Pastoral Screen Source of Request: Patient 04/03/17 07:35 Consult to Physician [CONS] Routine Comment: Consulting Provider: Baudilio Wadsworth Jr. 04/07/17 14:06 Consult to Case Mgmt/Social Srvs [CONS] Routine Reason for Case Mgmt/Social Srvs: Discharge Planning Discharging clinician: Diane E Matt, DO Expected date of discharge: 04/08/17
== END 2017-04-08 18:30 | disposition home health service (06) | DRG 689 ==
LOC: EDBD → EDUNIT# → N.ED 09:19 → N.EDINP 12:27 → N.ICU 14:00 → N.2E 04-03 15:45
PROVIDERS: ADMIT Family Medicine; ATTEND Family Medicine

== ENCOUNTER 2017-06-20 14:49 | Inpatient (IN) ==
[2017-06-20] MEDS ORDERED: SODIUM CHLORIDE 0.9% 1,000 ML IV STA (15:29)
[2017-06-20] MEDS ORDERED: ONDANSETRON 4 MG/2 ML VIAL IV STA (15:29)
[2017-06-20] MEDS ORDERED: MORPHINE 2 MG/1 ML SYRINGE IV STA (15:29)
[2017-06-20] MEDS ORDERED: MORPHINE 2 MG/1 ML SYRINGE ONE (15:53)
[2017-06-20] MEDS ORDERED: ONDANSETRON 4 MG/2 ML VIAL ONE (15:53)
[2017-06-20 16:08] LABS: Basophils % 0.1 % (0.0-0.8); Eosinophils % 0.1 % (0.00-10.9); Hematocrit 23.1 VOL% (35.7-47.0); Hemoglobin 6.8 GM/DL (12.0-16.0); Immature Granulocytes % 2.5 %; Lymphocytes # 0.9 10*3/uL (1.4-4.0); Lymphocytes % 5.4 % (21.3-54.2); Mean Corpuscular HGB Conc 29.4 GM/DL (32-36); Mean Corpuscular Hemoglobin 22 PG (27-34); Mean Corpuscular Volume 75.7 FL (87-102); Mean Platelet Volume 9.4 FL (9.6-12.0); Monocytes # 1.6 10*3/uL (0.11-0.8); Monocytes % 9.6 % (1.7-12.7); NRBC # 0.03 10*3/uL; Neutrophils # 13.2 10*3/uL (1.4-7.4); Neutrophils % 82.3 % (38.7-73.9); Platelet Count 268 T/CUMM (130-400); Red Blood Count 3.05 MC/CUMM (3.8-5.5); Red Cell Distribution Width 16.9 % (9.3-17.3); White Blood Count 16.1 T/CUMM (4-12)
[2017-06-20 16:31] LABS: Calcium 8.4 MG/DL (8.5-10.1); Osmolality,Calculated 275.7 MOS/KG (273-304); Potassium 2.8 MMOL/L (3.5-5.1)
[2017-06-20] MEDS ORDERED: SODIUM CHLORIDE 0.9% 250 ML IV PRN (18:37)
[2017-06-20] MEDS ORDERED: ONDANSETRON 4 MG/2 ML VIAL IV PRN (18:37)
[2017-06-20] MEDS ORDERED: PROMETHAZINE 25 MG/1 ML VIAL IM PRN (18:37)
[2017-06-20] MEDS ORDERED: traMADol 50 MG TABLET PO PRN (18:37)
[2017-06-20] MEDS ORDERED: ACETAMINOPHEN 325 MG TABLET PO PRN (18:37)
[2017-06-20] MEDS ORDERED: MORPHINE 2 MG/1 ML SYRINGE IV PRN (18:37)
[2017-06-20] MEDS ORDERED: BACLOFEN 10 MG TABLET PO PRN (18:37)
[2017-06-20] MEDS ORDERED: INFLUENZA VIRUS VACCINE 0.5 ML SYRINGE IM ONE (19:15)
[2017-06-20] MEDS: FLUDROCORTISONE 0.1 MG TABLET PO SCH (20:26)
[2017-06-20] MEDS: PANTOPRAZOLE 40 MG TABLET PO SCH (20:26)
[2017-06-20] MEDS: HYDROCORTISONE 10 MG TABLET PO SCH (20:26)
[2017-06-20] MEDS: DONEPEZIL 5 MG TABLET PO SCH (20:26)
[2017-06-20] MEDS: DOCUSATE SODIUM 100 MG CAPSULE PO SCH (20:26)
[2017-06-21] MEDS: SODIUM CHLORIDE 0.9% 1,000 ML IV SCH ×2 (05:03→14:54)
[2017-06-21 06:14] LABS: Apearance,Urine Slightly Hazy (Clear); Bacteria,Urine Many /HPF (Few); Bilirubin,Urine Negative (Negative); Blood, Urine Small mg/dL (Negative); Glucose,Urine (UA) Negative (Negative); Hyaline Casts,Urine 6 /LPF (0-3); Ketones,Urine Negative (Negative); Mucus,Urine Occasional /LPF (Occasional); Nitrite,Urine Negative (Negative); Protein,Urine Negative; RBC,Urine 1 /HPF (0-4); Renal Epithelial Cells,Urine Occasional /HPF (<1); Squamous Epithelial Cell,Urine Occasional /HPF (0-10); Urine Color Yellow (Yellow); Urine Urobilinogen < 2.0 EU/DL (0.2-1.0); WBC,Urine 39 /HPF (0-6)
[2017-06-21 07:21] LABS: Basophils % 0.1 % (0.0-0.8); Eosinophils % 0.1 % (0.00-10.9); Hematocrit 30.8 VOL% (35.7-47.0); Hemoglobin 9.5 GM/DL (12.0-16.0); Immature Granulocytes % 2.2 %; Immature Granulocytes Absolute 0.45 #; Lymphocytes # 0.5 10*3/uL (1.4-4.0); Lymphocytes % 2.6 % (21.3-54.2); Mean Corpuscular HGB Conc 30.8 GM/DL (32-36); Mean Corpuscular Hemoglobin 24 PG (27-34); Mean Corpuscular Volume 78.4 FL (87-102); Mean Platelet Volume 9.8 FL (9.6-12.0); Monocytes # 1.5 10*3/uL (0.11-0.8); Monocytes % 7.2 % (1.7-12.7); NRBC # 0.02 10*3/uL; Neutrophils # 18.4 10*3/uL (1.4-7.4); Neutrophils % 87.8 % (38.7-73.9); Platelet Count 226 T/CUMM (130-400); Red Blood Count 3.93 MC/CUMM (3.8-5.5); Red Cell Distribution Width 16.8 % (9.3-17.3); White Blood Count 20.9 T/CUMM (4-12)
[2017-06-21 07:57] LABS: Anisocytosis 1+; Band Neutrophils 29 % (0-10); Lymphocytes 4 % (20-55); Poikilocytosis 1+; Segmented Neutrophils 62 % (50-85); Total Cells Counted 100
[2017-06-21 08:02] LABS: Albumin 2.2 G/DL (3.4-5.0); Bilirubin,Total 0.9 MG/DL (0.2-1.0); Calcium 7.8 MG/DL (8.5-10.1); Magnesium 1.9 MG/DL (1.8-2.4); Osmolality,Calculated 278.4 MOS/KG (273-304); Potassium 3.2 MMOL/L (3.5-5.1); Total Protein 4.4 G/DL (6.4-8.3)
[2017-06-21 08:13] LABS: Free T4 (Free Thyroxine) 1.17 NG/DL (0.76-1.46); Thyroid Stimulating Hormone 0.219 uIU/ml (0.358-3.74)
[2017-06-21] MEDS ORDERED: PANTOPRAZOLE 40 MG TABLET PO SCH (09:00)
[2017-06-21] MEDS: CALCIUM (CARBONATE)/VITAMIN D 600 MG-400 UNIT TABLET PO SCH (09:35)
[2017-06-21] MEDS: FLUDROCORTISONE 0.1 MG TABLET PO SCH ×2 (09:35→20:23)
[2017-06-21] MEDS: HYDROCORTISONE 10 MG TABLET PO SCH ×2 (09:35→20:23)
[2017-06-21] MEDS: METOCLOPRAMIDE 10 MG TABLET PO SCH ×2 (09:35→16:27)
[2017-06-21] MEDS: POTASSIUM CHLORIDE 20 MEQ TABLET PO SCH ×2 (09:35→16:27)
[2017-06-21] MEDS: ESCITALOPRAM 10 MG TABLET PO SCH (09:36)
[2017-06-21] MEDS: DOCUSATE SODIUM 100 MG CAPSULE PO SCH ×3 (09:36→20:24)
[2017-06-21] MEDS: PANTOPRAZOLE 40 MG TABLET PO SCH ×2 (09:36→20:23)
[2017-06-21] MEDS: DONEPEZIL 5 MG TABLET PO SCH (20:23)
[2017-06-22 05:01] LABS: Basophils % 0.1 % (0.0-0.8); Hematocrit 28.9 VOL% (35.7-47.0); Hemoglobin 9.1 GM/DL (12.0-16.0); Immature Granulocytes % 1.5 %; Immature Granulocytes Absolute 0.34 #; Lymphocytes # 0.3 10*3/uL (1.4-4.0); Lymphocytes % 1.3 % (21.3-54.2); Mean Corpuscular HGB Conc 31.5 GM/DL (32-36); Mean Corpuscular Hemoglobin 24 PG (27-34); Mean Corpuscular Volume 76.7 FL (87-102); Mean Platelet Volume 10.1 FL (9.6-12.0); Monocytes # 1.3 10*3/uL (0.11-0.8); Monocytes % 5.7 % (1.7-12.7); Neutrophils # 20.1 10*3/uL (1.4-7.4); Neutrophils % 91.4 % (38.7-73.9); Platelet Count 224 T/CUMM (130-400); Red Blood Count 3.77 MC/CUMM (3.8-5.5); Red Cell Distribution Width 17.2 % (9.3-17.3)
[2017-06-22 05:23] LABS: Calcium 8.2 MG/DL (8.5-10.1); Magnesium 1.7 MG/DL (1.8-2.4); Osmolality,Calculated 274.7 MOS/KG (273-304); Potassium 2.7 MMOL/L (3.5-5.1)
[2017-06-22] MEDS: SODIUM CHLORIDE 0.9% 1,000 ML IV SCH (05:30)
[2017-06-22 07:15] LABS: Eosinophils 1 % (0-10); Hypochromasia 2+; Lymphocytes 3 % (20-55); Microcytosis 1+; Platelet Estimate Adequate; Segmented Neutrophils 88 % (50-85); Total Cells Counted 100
[2017-06-22] MEDS: METOCLOPRAMIDE 10 MG TABLET PO SCH (08:46)
[2017-06-22] MEDS: POTASSIUM CHLORIDE 20 MEQ TABLET PO SCH (08:46)
[2017-06-22] MEDS: CALCIUM (CARBONATE)/VITAMIN D 600 MG-400 UNIT TABLET PO SCH (08:46)
[2017-06-22] MEDS: HYDROCORTISONE 10 MG TABLET PO SCH (08:47)
[2017-06-22] MEDS: PANTOPRAZOLE 40 MG TABLET PO SCH (08:48)
[2017-06-22] MEDS: ESCITALOPRAM 10 MG TABLET PO SCH (08:48)
[2017-06-22] MEDS: DOCUSATE SODIUM 100 MG CAPSULE PO SCH (08:48)
[2017-06-22] MEDS: FLUDROCORTISONE 0.1 MG TABLET PO SCH (08:48)
[2017-06-22] MEDS ORDERED: MAGNESIUM SULF RIDER 2 GM in PREMIX 1 EACH IV ONE (10:53)
[2017-06-22 16:05] VITALS: BP 105/52
== END 2017-06-22 15:20 | disposition home health service (06) | DRG 559 ==
LOC: EDBD → EDUNIT# → N.ED 14:49 → N.EDINP 16:47 → N.3E 18:15
PROVIDERS: ADMIT Family Medicine; ATTEND Family Medicine